=== PATIENT | female | born 1980 | race Caucasian/White ===

== ENCOUNTER 2017-04-07 10:54 | Inpatient (IN) ==
[2017-04-07 11:14] VITALS: BMI 41.4
[2017-04-07] MEDS ORDERED: CLINDAMYCIN 300 MG CAPSULE PO SCH (13:30)
[2017-04-07] MEDS ORDERED: FALL RISK - PHARMACY CONSULT XX PRN (14:06)
[2017-04-07] MEDS: ALBUTEROL 2.5mg/3ml (0.083%) NEB AEROSOL SCH ×2 (14:53→19:34)
[2017-04-07] MEDS: GABAPENTIN 600 MG TABLET PO SCH ×2 (14:55→21:54)
[2017-04-07] MEDS: CLINDAMYCIN 300 MG CAPSULE PO SCH ×2 (14:55→21:49)
[2017-04-07] MEDS: ONDANSETRON ODT 4 MG TABLET PO SCH ×2 (14:56→21:53)
--- NOTE | 2017-04-07 15:09 | Consult Note ---
<Aundrea Dickens - Last Filed: 04/07/17 14:39> Consult Information - Data of Consult Patient: new to practice Consult date: 04/07/17 Requesting Physician: Freedom Lo MD Primary Care Provider: Dr. Era Barrientos Family Provider: Dr. Era Barrientos - Consult Narrative Reason for consult: Medical Management History of present illness: Yesenia Jacob is a very pleasant 36-year-old Tanzanian-speaking patient with a known history of HIV/AIDS with toxoplasmosis. She was directly admitted [place] [facility] [place] [facility] today, 04/07/17, for continuation of intensive rehabilitation secondary to her progressive right sided weakness and generalized debility following her recent hospitalization. Her daughter, Amy , translates via the patient's cell phone, contributing to the history in addition to review of the medical records available from her recent admission. It is reported that on 04/02/17, while visiting family at [facility] in [place], she complained of increased right sided numbness and weakness to her family and was noted to have increased difficulty ambulating with her walker in light of the weakness. She also reports that at that time she was having severe left sided chest pain which she describes as pressure. Shortly complaining of her pain, she went unresponsive and was transferred to the ED. While in the ED, she initially had a GCS score of 3. State CT head showed no acute changes. During her evaluation in the ED, she began posturing and required intubation and was then transferred to [facility] under the care of Dr. Yoon. During her hospitalization at [facility] in the [facility] , it was reported that she had 2 questionable seizures on 04/02. The seizures were reported to be nonepileptic in description. Dr. Lizbeth Cowan, neurology was consulted. She was given a loading dose of Keppra with continuation of her home dose of Keppra. MRI of the head was obtained and showed no acute changes. She also under went an EEG on 04/03 which showed no potentially epileptogenic abnormalities or seizure activity during wake or sleep. She continued to exhibit right sided weakness as compared to the left sided and reported right sided numbness to her face and arm. Prior to her unresponsive episode on , she was seen in clinic by Dr. Barrientos on 03/29/17 due to complaints of right sided weakness and left sided headache. She was noted to have become less functional with ADLs and ambulation. At that time, her toxoplasmosis regimen was updated as well as her seizure treatment. Her Keppra dose was increased to 1500mg BID as she reportedly had a seizure on 03/25/17. Due to her progressive right sided numbness and weakness, she was accepted to IRU for continued efforts in improving her functional abilities and strength. Hospitalist service was consulted for medical management. On exam, she is seen in her room, sitting in her recliner. She is alert and orientated x 3 and is very pleasant on exam. Her daughter translates via phone. She denies any complaints at this time including no headache, chest pain , shortness of breath, abdominal pain, nausea, vomiting, dysuria, hematuria or diarrhea. She does express concern about her recent chest pain, but again denies any current chest pain, palpitation or irregular beats. She is noted to have eating all her lunch. Cardiac exam reveals regular rate and rhythm and lungs are clear to auscultation bilaterally. Abdomen is soft, nontender with active bowel sounds. 2+ pedal and radial pulses bilaterally. No obvious facial droop. Full extension of arms bilaterally and able to hold both arms up with out drift. 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 Strength equal to bilateral lower extremities with the exception of right foot dorsi and plantar flexion. [facility]LY [facility] Medical History Updates: AIDS. Toxoplasmosis - active therapy phase. Persistent seizures. Neuropathy. Hypothyroidism. GERD. History of anemia. Asthma. Allergic rhinitis. Surgical History: - 2003. Cholecystectomy - 2009. Hysterectomy secondary uterine tumor - 05/16/2015. Right knee and ankle arthroscopy - 2015. Left parietal mass resection - 10/09/2016 (Dr. Costa). Family History Updates: Mother - , age 24, HIV. Father - unknown. Daughter - alive, age 13, HIV. Daughter - alive, age 17, healthy. Son - alive , age 19, healthy. Sister - alive, age 33, hypothyroidism. - Social History Smoking status: Never smoker Substance use type: does not use Alcohol intake frequency: does not drink Housing: apartment Household members: children (daughter) service: No Current occupational status: disabled Does patient use chewing tobacco?: No Current residence: Apartment/Private Home Social history: PCP - Dr. Era Barrientos. Review of Systems All systems: reviewed and no additional remarkable complaints except as stated - Constitutional Constitutional: Present: headache(s), weakness (right sided). Absent: chills, fever(s) - EENMT Eyes: Absent: blurry vision, pain Ears: Absent: ear pain Nose: Present: allergies. Absent: nosebleeds Mouth/Throat: Absent: sore throat, changes in swallowing, dry mouth - Cardiovascular Cardiovascular: Absent: chest pain (prior chest pain during admission [facility] ), palpitations, dyspnea on exertion, edema Vascular: Absent: pallor of an extermity, pedal edema, unilateral swelling - Respiratory Respiratory: Absent: cough, dyspnea, hemoptysis, dyspnea on exertion, wheezing, pain on inspiration - Gastrointestinal Gastrointestinal: Present: constipation. Absent: abdominal pain, change in bowel habits, diarrhea, melena, nausea, vomiting - Genitourinary Genitourinary: Absent: dysuria, hematuria Menstruation: post hysterectomy - Musculoskeletal Musculoskeletal: Present: muscle weakness. Absent: arthralgias, deformity, joint swelling, neck pain - Integumentary/Breasts Integumentary: Absent: lesions, rash, jaundice - Neurological Neurological: Present: focal weakness (right sided), headache(s), numbness ( right sided), weakness. Absent: abnormal speech, dizziness, frequent falls, loss of vision - Psychiatric Psychiatric: Absent: anxiety, depression, panic attacks, suicidal ideation - Endocrine Endocrine: Absent: palpitations, polyuria - Hematologic/Lymphatic Hematologic/Lymphatic: Absent: easy bleeding, easy bruising - Allergic/Immunologic Allergic/Immunologic: Present: seasonal rhinorrhea. Absent: throat swelling Medications Home Medications Medication Instructions Recorded Confirmed Type Dapsone [Aczone] 100 mg PO DAILY #0 09/17/15 04/07/17 History Albuterol Neb (0.083%) [Proventil 3 ml AEROSOL TID 04/07/17 04/07/17 History Neb (0.083%)] Clindamycin [Cleocin] 2 cap PO Q6H 04/07/17 04/07/17 History Cyclobenzaprine [Flexeril] 1 tab PO TID PRN 04/07/17 04/07/17 History Dolutegravir Sodium [Tivicay] 50 mg PO DAILY 04/07/17 04/07/17 History Emtricitabine/Tenofov Alafenam 1 tab PO DAILY 04/07/17 04/07/17 History [Descovy 200-25 mg Tablet] Ergocalciferol (Vit. D2) [Vitamin 1 cap PO QTUTH 04/07/17 04/07/17 History D-2] Gabapentin [Neurontin] 1 tab PO TID 04/07/17 04/07/17 History Leucovorin Calcium 25 mg PO DAILY 04/07/17 04/07/17 History Levothyroxine Tab [Synthroid] 1 tab PO ACB 04/07/17 04/07/17 History Montelukast [Singulair] 1 tab PO HS 04/07/17 04/07/17 History Ondansetron [Zofran Odt] 8 mg PO Q8H 04/07/17 04/07/17 History Oxycodone *Ir* [Roxicodone *Ir*] 5 mg PO Q6HPRN PRN 04/07/17 04/07/17 History Pantoprazole Tab [Protonix Tab] 1 tab PO ACBID 04/07/17 04/07/17 History Pyrimethamine [Daraprim] 3 tab PO DAILY 04/07/17 04/07/17 History hydrOXYzine HCl [Hydroxyzine HCl] 25 mg PO Q6H PRN 04/07/17 04/07/17 History levETIRAcetam [Levetiracetam] 1,500 mg PO BID 04/07/17 04/07/17 History Allergies Allergy/AdvReac Type Severity Reaction Status Date / Time Fish Containing Products Allergy Unknown Verified 07/08/16 01:18 lactose Allergy Unknown Verified 07/08/16 01:18 sulfamethoxazole Allergy Unknown Verified 07/08/16 01:18 trimethoprim Allergy Unknown Verified 07/08/16 01:18 Exam Vital Signs: Temperature 98.5 F 04/07/17 11:03 Pulse Rate 68 04/07/17 11:03 Respiratory Rate 16 04/07/17 11:03 Blood Pressure 104/64 04/07/17 11:03 Pulse Oximetry 97 04/07/17 11:03 Oxygen Delivery Method Room Air Height: 5 ft 2 in Weight: 226 lb 6.636 oz Body Mass Index: 41.4 - Constitutional Present: no acute distress, well nourished, well developed, obese, cooperative - Routine HEENT Exam Head: Present: normocephalic, atraumatic Eye: Present: EOMI, PERRL. Absent: conjunctival icterus, scleral injection ENT: Present: mucous membranes moist, dentition normal - Routine Neck Exam Present: supple, full ROM, trachea midline. Absent: tenderness, meningismus - Routine Chest/Breast/Axilla Exam Chest wall: Absent: tenderness, pacemaker - Routine Respiratory Exam Present: CTA bilaterally. Absent: accessory muscle use, rales, respiratory distress, rhonchi, stridor, wheezes, crackles - Routine Cardiovascular Exam Present: RRR, S1, S2, no murmur - Routine Abdominal Exam Present: soft, normoactive bowel sounds, non distended, non tender. Absent: guarding, firm, rigid - Routine Extremities Exam Present: no edema, non tender, full ROM, pulses intact. Absent: cyanosis, calf tenderness, pallor - Routine Back/Spine/Pelvis Exam Back/Spine: Absent: paraspinal tenderness, vertebral tenderness, erythema, warmth - Routine Skin Exam Present: intact, dry, normal turgor. Absent: erythema, petechiae, lesions, jaundice, rash - Routine Neurological Exam Present: alert, oriented X3, CN II-XII intact, moving all extremities, hearing grossly intact, normal speech. Absent: pronator drift, facial asymmetry decreased satellite dish installer on right as compared to left; decreased strength with dorsi and plantar flexion on right as compared to left. - Routine Psychiatric Exam Present: normal affect, cooperative Assessment and Plan (1) Weakness of right side of body Current visit: Yes Status: Acute (2) AIDS (acquired immunodeficiency syndrome), CD4 >200 and <500 Current visit: Yes Status: Chronic (3) Toxoplasmosis Current visit: Yes Status: Chronic (4) Seizures Current visit: Yes Status: Chronic (5) Neuropathy Current visit: Yes Status: Chronic (6) Hypothyroidism Current visit: Yes Status: Chronic (7) GERD (gastroesophageal reflux disease) Current visit: Yes Status: Chronic (8) Debility Current visit: Yes Status: Acute DVT Prophylaxis: SCD's GI Prophylaxis: Protonix Resuscitation Status: Full Code Assessment and Plan: -Debility secondary to acute illness and right sided weakness. .Agree with the admission to IRU under the care of Dr. Eason. Consult hospitalist service for medical management. .Provide a safe and supportive environment and encourage participation in therapies. .Recent MRI was unremarkable as was CT head. .Will obtain admission work up including CBC and CMP to monitor blood counts , electrolytes and renal function. .Patient reports episodes of hypoglycemia. Will obtain BMGs and monitor closely. .SCDs for DVT prophylaxis. -AIDS with toxoplasmosis, MAC. .Patient follows with Dr. Era Barrientos in [place]. .Continue home medications Tivicay and Descovy. Patient's family to bring her medications to hospital so she can take her own meds. .Viral load 70 and RPR negative on 03/29/17. .Patient off dapsone for PCP as CD4>200 consistently x 3 months (CD4 on 12/21 = 239, CD4 on 03/29 = 293) .Continue active therapy for toxoplasmosis 6 more weeks including clindamycin 600mg Q6H, Leucovorin 25mg PO daily and Daraprim 75mg po daily. .Records from [facility] indicate dosing will change to maintenance therapy for toxoplasmosis on 05/10/17 - clindamycin 800mg Q8H, daraprim 50mg daily and leucovorin daily, presumed to be at 25mg. -History of seizures. .Monitor closely for seizure activity. Seizure precautions. .Ativan 0.5mg PRN seizures. .Prior EEG on 04/03/17 at [facility] showed no abnormalities or seizure activity. .Encourage follow up with Dr. Cameron as outpatient . .Continue Keppra 1500mg BID. -Neuropathy. .Continue home gabapentin. -Hypothyroidism. .Will check TSH now and continue home synthyroid. -GERD. .Continue home protonix. Appreciate the ability to assist in the care of Yesenia. Upon discharge, her care will be returned to her PCP, Dr. Barrientos. Hospital Course Summary Disclaimer: The visit summary below is not to be considered part of the above Progress Note. Hospital Course: 04/07/17 15:45 -Debility secondary to acute illness and right sided weakness. .Agree with the admission to IRU under the care of Dr. Eason. Consult hospitalist service for medical management. .Provide a safe and supportive environment and encourage participation in therapies. .Recent MRI was unremarkable as was CT head. .Will obtain admission work up including CBC and CMP to monitor blood counts , electrolytes and renal function. .Patient reports episodes of hypoglycemia. Will obtain BMGs and monitor closely. .SCDs for DVT prophylaxis. -AIDS with toxoplasmosis, MAC. .Patient follows with Dr. Era Barrientos in [place]. .Continue home medications Tivicay and Descovy. Patient's family to bring her medications to hospital so she can take her own meds. .Viral load 70 and RPR negative on 03/29/17. .Patient off dapsone for PCP as CD4>200 consistently x 3 months (CD4 on 12/21 = 239, CD4 on 03/29 = 293) .Continue active therapy for toxoplasmosis 6 more weeks including clindamycin 600mg Q6H, Leucovorin 25mg PO daily and Daraprim 75mg po daily. .Records from [facility] indicate dosing will change to maintenance therapy for toxoplasmosis on 05/10/17 - clindamycin 800mg Q8H, daraprim 50mg daily and leucovorin daily, presumed to be at 25mg. -History of seizures. .Monitor closely for seizure activity. Seizure precautions. .Ativan 0.5mg PRN seizures. .Prior EEG on 04/03/17 at [facility] showed no abnormalities or seizure activity. .Encourage follow up with Dr. Cameron as outpatient . .Continue Keppra 1500mg BID. -Neuropathy. .Continue home gabapentin. -Hypothyroidism. .Will check TSH now and continue home synthyroid. -GERD. .Continue home protonix. Appreciate the ability to assist in the care of Yesenia. Upon discharge, her care will be returned to her PCP, Dr. Barrientos. Sepsis Assessment - Evaluation Sepsis screening result: No Definite Risk <Joel Almaraz - Last Filed: 04/07/17 16:21> Consult Information - Data of Consult Requesting Physician: Freedom Lo MD [facility] Patient Stated Medical History Seizures Yes Constipation No Gastroesophageal Reflux Yes Disease Hx Incontinence No Human Immunodeficiency Virus ( Yes HIV) Other Yes: Hx: AIDS w/ MAC, toxoplasmosis s/p treatment Exam Vital Signs: Temperature 98.5 F 04/07/17 11:03 Pulse Rate 68 04/07/17 11:03 Respiratory Rate 14 04/07/17 14:53 Blood Pressure 104/64 04/07/17 11:03 Pulse Oximetry 97 04/07/17 14:53 Oxygen Delivery Method Room Air Height: 1.57 m Weight: 102.7 kg Assessment and Plan (1) Weakness of right side of body Current visit: Yes Status: Acute (2) Debility Current visit: Yes Status: Acute (3) AIDS (acquired immunodeficiency syndrome), CD4 >200 and <500 Current visit: Yes Status: Chronic (4) Toxoplasmosis Current visit: Yes Status: Chronic (5) Seizures Current visit: Yes Status: Chronic (6) Neuropathy Current visit: Yes Status: Chronic (7) Hypothyroidism Current visit: Yes Status: Chronic (8) GERD (gastroesophageal reflux disease) Current visit: Yes Status: Chronic Assessment and Plan: Have independently interviewed and examined pt. Chart reviewed. Case discussed with my PA. Above care plan developed with my supervision; agree with above. Pt' s daughter present during the interview and examination and helped with interpretation. Recent hospitalization with collapse and seizure activity. Seizures controlled, but pt with persistent right sided weakness and parasthesia limiting her functional ability. Admitted to IRU to maximize functional status. Breathing stable-no pain with breathing, occasional cough but not SOA. Notes nausea at times-no vomiting. Bowels stable. Does have mild pain to right side of head. Lungs: clear bilaterally CV: regular AB: soft nt/nd +BS EXT: +1-2 bilaterally LE edema MSE: awake alert appropriate, thoughts linear. Converses well Plan: Agree with admission to IRU to maximize functional status. Continue with chronic medications. Monitor for seizure activities. Medically stable for IRU floor activity. Hospital Course Summary Disclaimer: The visit summary below is not to be considered part of the above Progress Note.
[2017-04-07] MEDS: PANTOPRAZOLE 40 MG TABLET PO SCH (17:30)
[2017-04-07] MEDS ORDERED: MORPHINE SULFATE 4 MG SYRINGE IVP PRN (21:07)
[2017-04-07] MEDS: Oxycodone *IR* 5 MG TABLET PO PRN (21:52)
[2017-04-07] MEDS: LEVETIRACETAM 500 MG TABLET PO SCH (21:53)
[2017-04-07] MEDS: MONTELUKAST 10 MG TABLET PO SCH (21:54)
[2017-04-08] MEDS: CLINDAMYCIN 300 MG CAPSULE PO SCH ×5 (02:19→21:15)
[2017-04-08] MEDS: Oxycodone *IR* 5 MG TABLET PO PRN ×2 (02:19→09:06)
[2017-04-08] MEDS: PANTOPRAZOLE 40 MG TABLET PO SCH ×2 (06:19→18:01)
[2017-04-08] MEDS: LEVOTHYROXINE 75 MCG TABLET PO SCH (06:19)
[2017-04-08] MEDS: ONDANSETRON ODT 4 MG TABLET PO SCH ×3 (06:19→21:17)
[2017-04-08] MEDS: ALBUTEROL 2.5mg/3ml (0.083%) NEB AEROSOL SCH ×3 (08:14→19:47)
[2017-04-08] MEDS: GABAPENTIN 600 MG TABLET PO SCH ×3 (08:42→21:16)
[2017-04-08] MEDS: ENOXAPARIN 40 MG/0.4 ML INJECTION SQ SCH (08:44)
[2017-04-08] MEDS: DAPSONE 100 MG TABLET PO SCH (08:45)
[2017-04-08] MEDS: DOLUTEGRAVIR SODIUM 50 MG PO SCH (08:48)
[2017-04-08] MEDS: [UNRECOGNIZED DRUG - OTHER] PO SCH (08:52)
[2017-04-08] MEDS: EMTRICITABINE PO SCH (08:52)
[2017-04-08] MEDS: TENOFOVIR ALAFENAMIDE PO SCH (08:52)
[2017-04-08] MEDS: LEVETIRACETAM 500 MG TABLET PO SCH ×2 (08:59→21:18)
[2017-04-08] MEDS: LEUCOVORIN 25 MG PO SCH (09:35)
[2017-04-08] MEDS: [UNRECOGNIZED DRUG - OTHER] PO SCH (09:36)
[2017-04-08] MEDS: CYCLOBENZAPRINE 10 MG TABLET PO PRN (14:26)
--- NOTE | 2017-04-08 15:32 | IRU History & Physical Report ---
HPI IRU Date: 458 Chief complaint: Right sided weakness HPI: Ms. Arpita Jacob is admitted with right sided weakness after a spell which occurred in [place] at [facility]. On March, she was visiting her daughter and grandchild at the hospital she reportedly felt reduced sensation in her right arm and leg. She became very thirsty. She drank some water. She had a "pulsing" feeling in her left side of her head. She also reports a right ant chest pain sensation. She then experienced loss of consciousness. She was taken to [facility], also in [place]. After a neg CT scan, an MRI was done, failing to identify any new findings compared to prior imaging. 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 Era Barrientos. Last CD4 count was over 200. Viral load around 70. She has hx of a mass resected from her left parietal area in June 2016. Presumably this was toxo although exact pathology is not available and reference is made in the transfer records that it may have been a non-specific finding. She does have history of recurrent seizures but states that she is regular on her medication usage. It is not clear if she had another seizure this time in [place] although she states that her usual "aura" of itchy eyes, etc. did NOT occur this time. She has been admitted to the hospitals in [place] on numerous occasions for recurrent seizures. Since this more recent episode, she has been much less functional regarding ADL's and ambulation. She did experience "posturing" in the ED in [place]. Intubation was performed but she was rapidly extubated the next day. She is admitted to the inpatient rehab unit for strengthening after recurrent seizures and a new "spell" recently occurring. She has left brain dysfunction and right sided weakness. There was no evidence of bleed in the brain on MRI. At the time of admission to IRU it is noted that she was independent with eating prior to her admission in [place] but now requires supervision. She now requires mod assist for lower dressing and toileting. Requires moderate assist for walking. Prior distance walking was 500 ft but now is 42 ft. It is anticipated that she will be mod independent with self-care, independent with sphincter control, mod Indep with transfers, locomotion and in communication skills. She will require 24 hour nursing care due to her seizures and risk for infection , nutrition services, OT, PT pastoral care and psychiatric social worker along with physician management of her complex medical problems. Review of Systems - Constitutional Constitutional: Present: headache(s), weakness (right sided). Absent: chills, fever(s) - EENMT Eyes: Absent: blurry vision, pain Ears: Absent: ear pain Nose: Present: allergies. Absent: nosebleeds Mouth/Throat: Absent: sore throat, changes in swallowing, dry mouth - Cardiovascular Cardiovascular: Absent: chest pain (prior chest pain during admission SF ), palpitations, dyspnea on exertion, edema Vascular: Absent: pallor of an extermity, pedal edema, unilateral swelling - Respiratory Respiratory: Absent: cough, dyspnea, hemoptysis, dyspnea on exertion, wheezing, pain on inspiration - Gastrointestinal Gastrointestinal: Present: constipation. Absent: abdominal pain, change in bowel habits, diarrhea, melena, nausea, vomiting - Genitourinary Genitourinary: Absent: dysuria, hematuria Menstruation: post hysterectomy - Musculoskeletal Musculoskeletal: Present: muscle weakness. Absent: arthralgias, deformity, joint swelling, neck pain - Integumentary/Breasts Integumentary: Absent: lesions, rash, jaundice - Neurological Neurological: Present: focal weakness (right sided), headache(s), numbness ( right sided), weakness. Absent: abnormal speech, dizziness, frequent falls, loss of vision - Psychiatric Psychiatric: Absent: anxiety, depression, panic attacks, suicidal ideation - Endocrine Endocrine: Absent: palpitations, polyuria - Hematologic/Lymphatic Hematologic/Lymphatic: Absent: easy bleeding, easy bruising - Allergic/Immunologic Allergic/Immunologic: Present: seasonal rhinorrhea. Absent: throat swelling PFS Patient Stated Medical History Seizures Yes Constipation No Gastroesophageal Reflux Yes Disease Hx Incontinence No Human Immunodeficiency Virus ( Yes HIV) Other Yes: Hx: AIDS w/ MAC, toxoplasmosis s/p treatment Medical History Updates: AIDS. Toxoplasmosis - active therapy phase. Persistent seizures. Neuropathy. Hypothyroidism. GERD. History of anemia. Asthma. Allergic rhinitis. Surgical History: - 2003. Cholecystectomy - 2009. Hysterectomy secondary uterine tumor - 05/16/2015. Right knee and ankle arthroscopy - 2015. Left parietal mass resection - 10/09/2016 (Dr. Costa). - Social History Current residence: Apartment/Private Home Medications Home Medications Medication Instructions Recorded Confirmed Type Dapsone [Aczone] 100 mg PO DAILY #0 09/17/15 04/07/17 History Albuterol Neb (0.083%) [Proventil 3 ml AEROSOL TID 04/07/17 04/07/17 History Neb (0.083%)] Clindamycin [Cleocin] 2 cap PO Q6H 04/07/17 04/07/17 History Cyclobenzaprine [Flexeril] 1 tab PO TID PRN 04/07/17 04/07/17 History Dolutegravir Sodium [Tivicay] 50 mg PO DAILY 04/07/17 04/07/17 History Emtricitabine/Tenofov Alafenam 1 tab PO DAILY 04/07/17 04/07/17 History [Descovy 200-25 mg Tablet] Ergocalciferol (Vit. D2) [Vitamin 1 cap PO QTUTH 04/07/17 04/07/17 History D-2] Gabapentin [Neurontin] 1 tab PO TID 04/07/17 04/07/17 History Leucovorin Calcium 25 mg PO DAILY 04/07/17 04/07/17 History Levothyroxine Tab [Synthroid] 1 tab PO ACB 04/07/17 04/07/17 History Montelukast [Singulair] 1 tab PO HS 04/07/17 04/07/17 History Ondansetron [Zofran Odt] 8 mg PO Q8H 04/07/17 04/07/17 History Oxycodone *Ir* [Roxicodone *Ir*] 5 mg PO Q6HPRN PRN 04/07/17 04/07/17 History Pantoprazole Tab [Protonix Tab] 1 tab PO ACBID 04/07/17 04/07/17 History Pyrimethamine [Daraprim] 3 tab PO DAILY 04/07/17 04/07/17 History hydrOXYzine HCl [Hydroxyzine HCl] 25 mg PO Q6H PRN 04/07/17 04/07/17 History levETIRAcetam [Levetiracetam] 1,500 mg PO BID 04/07/17 04/07/17 History Allergies Allergy/AdvReac Type Severity Reaction Status Date / Time Fish Containing Products Allergy Unknown Verified 04/07/17 17:04 lactose Allergy Unknown Verified 04/07/17 17:04 sulfamethoxazole Allergy Unknown Verified 04/07/17 17:04 trimethoprim Allergy Unknown Verified 04/07/17 17:04 Exam Vital Signs: Temperature 98.5 F 04/08/17 08:34 Pulse Rate 77 04/08/17 08:34 Respiratory Rate 16 04/08/17 08:00 Blood Pressure 122/75 04/08/17 08:34 Pulse Oximetry 96 04/08/17 08:34 Oxygen Delivery Method Room Air Height: 1.57 m Weight: 102.7 kg Body Mass Index: 41.4 - Constitutional Present: no acute distress, well developed, obese - Routine HEENT Exam Head: Present: normocephalic Eye: Present: EOMI ENT: Present: mucous membranes moist - Routine Neck Exam Present: supple, full ROM - Routine Respiratory Exam Present: CTA bilaterally - Routine Cardiovascular Exam Present: RRR, S1, S2, no murmur - Routine Abdominal Exam Present: soft, normoactive bowel sounds, non distended, non tender - Routine Extremities Exam Present: non tender, full ROM - Routine Skin Exam Present: intact. Absent: cyanosis, erythema, rash - Routine Neurological Exam Present: alert, oriented X3, sensory deficit (reduced sensation to light touch right upper ext, right leg, right face), motor deficit (reduced flex/extension strength right upper and lower extremities.), abnormal gait, facial asymmetry ( questionable LEFT sided face droop: subtle and opposite to right arm/leg weakness). Absent: pronator drift - Routine Psychiatric Exam Present: normal affect (Very detailed), anxious Sepsis Assessment - Evaluation Sepsis screening result: No Definite Risk IRU A/P (1) Weakness of right side of body Current visit: Yes Status: Acute Pt will require skilled physical therapy and occupational therapy for safe return to her home and avoid additional admission as well as to prevent falls. (2) AIDS (acquired immunodeficiency syndrome), CD4 >200 and <500 Current visit: Yes Status: Chronic Per medical team. Continue current meds. Avoidance of contact with other ill patients/family members. (3) Seizures Current visit: Yes Status: Chronic Per medical team. Continue Keppra. Observe for recurrent seizure activity. (4) Toxoplasmosis Current visit: Yes Status: Chronic Continue active treatment. Per medical team. DVT Prophylaxis: SCD's, Lovenox Resuscitation Status: Full Code - Course Hospital Course: Jackson Eason MD: - Interventions to Obtain Goals PT Treatment Plan: Balance/Proprioception, Functional Activities, Gait Training , Patient/Family Education, Therapeutic Exercise OT Treatment Plan: ADL (Basic Care), Balance Training, Pt./Family Education, Sensory Integration, UE Functional Training
[2017-04-08] MEDS: MONTELUKAST 10 MG TABLET PO SCH (21:19)
[2017-04-09] MEDS: CLINDAMYCIN 300 MG CAPSULE PO SCH ×4 (02:45→21:02)
[2017-04-09] MEDS: PANTOPRAZOLE 40 MG TABLET PO SCH ×2 (06:16→17:36)
[2017-04-09] MEDS: LEVOTHYROXINE 75 MCG TABLET PO SCH (06:16)
[2017-04-09] MEDS: ONDANSETRON ODT 4 MG TABLET PO SCH ×3 (06:16→21:03)
[2017-04-09] MEDS: ALBUTEROL 2.5mg/3ml (0.083%) NEB AEROSOL SCH ×3 (07:20→20:36)
[2017-04-09] MEDS: ENOXAPARIN 40 MG/0.4 ML INJECTION SQ SCH (08:40)
[2017-04-09] MEDS: DAPSONE 100 MG TABLET PO SCH (08:41)
[2017-04-09] MEDS: DOLUTEGRAVIR SODIUM 50 MG PO SCH (08:42)
[2017-04-09] MEDS: EMTRICITABINE PO SCH (08:42)
[2017-04-09] MEDS: TENOFOVIR ALAFENAMIDE PO SCH (08:42)
[2017-04-09] MEDS: [UNRECOGNIZED DRUG - OTHER] PO SCH (08:42)
[2017-04-09] MEDS: LEUCOVORIN 25 MG PO SCH (08:43)
[2017-04-09] MEDS: GABAPENTIN 600 MG TABLET PO SCH ×3 (08:43→21:03)
[2017-04-09] MEDS: [UNRECOGNIZED DRUG - OTHER] PO SCH (08:43)
[2017-04-09] MEDS: LEVETIRACETAM 500 MG TABLET PO SCH ×2 (08:44→21:02)
[2017-04-09] MEDS: ERGOCALCIFEROL 50,000 UNIT CAPSULE PO SCH (08:44)
--- NOTE | 2017-04-09 10:15 | Progress Note ---
<Aundrea Dickens Xochilt - Last Filed: 04/09/17 10:11> Subjective: 04/09/17 Today is Yesenia's birthday and her daughter is present on exam and helps translate. She is seen in follow up for her right sided weakness and debility. She denies any complaints today including no chest pain, shortness of breath, abdominal pain, nausea, vomiting or dysuria. She does express concern about being able to get in and out of the tub at home. Therapy is present and discusses with her the use of a bath chair that is stationed both in and out of the tub so that all she needs to do is scoot. She is very pleased with this idea. Labs from admission were similar to labs from [facility] [place]. Mild leukopenia noted with WBC at 4.1 and hemoglobin low at 9.7. Nursing commented that the patient reports that she usually takes iron supplements but has not been getting one since admission. Will review MAR and home medications. Blood pressure has been on the lower end at 96/55. She does admit to some orthostasis with standing. Overall, she appears to be doing well. Appetite is good and bowels are moving. Heating pad noted behind patient's shoulders and she admits to some shoulder and neck pain yesterday but states that she was given a muscle relaxer which helped significantly as does the heating pad. She did also report that the muscle relaxer made her very sleepy. Objective Vital signs: Temperature 96.2 F L 04/09/17 07:00 Pulse Rate 74 04/09/17 07:00 Respiratory Rate 12 04/09/17 07:21 Blood Pressure 108/65 04/09/17 07:00 Pulse Oximetry 94 04/09/17 07:21 Oxygen Delivery Method Room Air Body Mass Index: 41.4 - Constitutional Present: no acute distress, well nourished, well developed, obese, cooperative - Routine HEENT Exam Head: Present: normocephalic, atraumatic Eye: Absent: conjunctival icterus, scleral injection ENT: Present: mucous membranes moist - Routine Respiratory Exam Present: CTA bilaterally. Absent: accessory muscle use, dyspnea, rales, respiratory distress, rhonchi, stridor, wheezes, crackles - Routine Cardiovascular Exam Present: RRR, S1, S2 - Routine Abdominal Exam Present: soft, normoactive bowel sounds, non distended, non tender - Routine Extremities Exam Present: edema (trace), non tender, pulses intact - Routine Back/Spine/Pelvis Exam Back/Spine: Present: full ROM, paraspinal tenderness (cervical). Absent: vertebral tenderness - Routine Musculoskeletal Exam Musculoskeletal: Present: no joint swelling - Routine Skin Exam Present: intact, dry, warm. Absent: erythema, jaundice - Routine Neurological Exam Present: alert, oriented X3, moving all extremities, normal tone, normal speech. 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 - Routine Psychiatric Exam Present: normal affect, cooperative Results - Labs CBC & Chem 7: 04/07/17 16:36 04/07/17 16:36 Assessment and Plan (1) AIDS (acquired immunodeficiency syndrome), CD4 >200 and <500 Current visit: Yes Status: Chronic (2) Toxoplasmosis Current visit: Yes Status: Chronic (3) Seizures Current visit: Yes Status: Chronic (4) Neuropathy Current visit: Yes Status: Chronic (5) Hypothyroidism Current visit: Yes Status: Chronic (6) GERD (gastroesophageal reflux disease) Current visit: Yes Status: Chronic (7) Weakness of right side of body Current visit: Yes Status: Acute (8) Debility Current visit: Yes Status: Acute Assessment and Plan: Overall, Yesenia appears to be doing well. Today is her birthday and she is in good spirits. Was given muscle relaxer yesterday for bilateral shoulder and neck pain with heating pad which she reports relieved her discomfort. Continue therapies and pain control per Dr. Eason. Encourage participation in therapies and provide safe environment. Patient expresses concern about bathing at home and anxieties were relieved through discussion of home equipment options. Admission labs were relatively unremarkable and unchanged from prior labs at [facility] [place]. Leukopenia noted with WBC 4.1 (chronic) and anemia with hemoglobin at 9.7. Nursing noted that patient commented on not receiving her iron supplement since admission. MAR reviewed. Sepsis Assessment - Evaluation Sepsis screening result: No Definite Risk Hospital Course Summary Disclaimer: The visit summary below is not to be considered part of the above Progress Note. Hospital Course: 04/07/17 15:45 -Debility secondary to acute illness and right sided weakness. .Agree with the admission to IRU under the care of Dr. Eason. Consult hospitalist service for medical management. .Provide a safe and supportive environment and encourage participation in therapies. .Recent MRI was unremarkable as was CT head. .Will obtain admission work up including CBC and CMP to monitor blood counts , electrolytes and renal function. .Patient reports episodes of hypoglycemia. Will obtain BMGs and monitor closely. .SCDs for DVT prophylaxis. -AIDS with toxoplasmosis, MAC. .Patient follows with Dr. Era Barrientos in [place]. .Continue home medications Tivicay and Descovy. Patient's family to bring her medications to hospital so she can take her own meds. .Viral load 70 and RPR negative on 03/29/17. .Patient off dapsone for PCP as CD4>200 consistently x 3 months (CD4 on 12/21 = 239, CD4 on 03/29 = 293) .Continue active therapy for toxoplasmosis 6 more weeks including clindamycin 600mg Q6H, Leucovorin 25mg PO daily and Daraprim 75mg po daily. .Records from [facility] indicate dosing will change to maintenance therapy for toxoplasmosis on 05/10/17 - clindamycin 800mg Q8H, daraprim 50mg daily and leucovorin daily, presumed to be at 25mg. -History of seizures. .Monitor closely for seizure activity. Seizure precautions. .Ativan 0.5mg PRN seizures. .Prior EEG on 04/03/17 at [facility] [place] showed no abnormalities or seizure activity. .Encourage follow up with Dr. Cameron as outpatient . .Continue Keppra 1500mg BID. -Neuropathy. .Continue home gabapentin. -Hypothyroidism. .Will check TSH now and continue home synthyroid. -GERD. .Continue home protonix. Appreciate the ability to assist in the care of Yesenia. Upon discharge, her care will be returned to her PCP, Dr. Barrientos. <Tomasa Urbina - Last Filed: 04/09/17 17:48> Objective Vital signs: Temperature 98 F 04/09/17 15:00 Pulse Rate 66 04/09/17 16:20 Respiratory Rate 16 04/09/17 15:04 Blood Pressure 121/69 04/09/17 16:20 Pulse Oximetry 96 04/09/17 15:00 Oxygen Delivery Method Room Air Results - Labs CBC & Chem 7: 04/07/17 16:36 04/07/17 16:36 Assessment and Plan (1) AIDS (acquired immunodeficiency syndrome), CD4 >200 and <500 Current visit: Yes Status: Chronic (2) Toxoplasmosis Current visit: Yes Status: Chronic (3) Seizures Current visit: Yes Status: Chronic (4) Neuropathy Current visit: Yes Status: Chronic (5) Hypothyroidism Current visit: Yes Status: Chronic (6) GERD (gastroesophageal reflux disease) Current visit: Yes Status: Chronic (7) Weakness of right side of body Current visit: Yes Status: Acute (8) Debility Current visit: Yes Status: Acute (9) Iron deficiency anemia Current visit: Yes Status: Chronic 04/09/17 17:47 Iron 34, TIBC 507, iron saturation 7%, ferritin 9, vitamin B-12 534 on 03/22/17 Assessment and Plan: I have independently evaluated and examined this patient. I reviewed the chart, the patient's history, and the PA's documented findings as above. We discussed and formulated the assessment and plan as above with additions as below: Yesenia was seen with several family members in the dining room. She reported no specific concerns at this time. She describes some residual numbness in the right face, arm, and leg since onset of seizures prompting hospitalization at [place]. No further seizure activity. NAD, alert, cooperative; speaking-daughter translates. 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 Iron studies obtained 03/22/17-serum iron 34, TIBC 507, iron saturation 7%, ferritin 9 , B-12 534. No need to repeat anemia evaluation here-studies canceled. Iron supplement ordered. Continue therapies. Hospital Course Summary Disclaimer: The visit summary below is not to be considered part of the above Progress Note.
[2017-04-09] MEDS: Oxycodone *IR* 5 MG TABLET PO PRN (11:13)
[2017-04-09] MEDS: MULTI-VITAMIN + IRON TABLET PO SCH (14:14)
[2017-04-09] MEDS: MONTELUKAST 10 MG TABLET PO SCH (21:03)
[2017-04-09] MEDS: CYCLOBENZAPRINE 10 MG TABLET PO PRN (21:04)
[2017-04-10] MEDS: CLINDAMYCIN 300 MG CAPSULE PO SCH ×4 (02:41→22:17)
[2017-04-10] MEDS: ONDANSETRON ODT 4 MG TABLET PO SCH ×3 (06:00→22:22)
[2017-04-10] MEDS: LEVOTHYROXINE 75 MCG TABLET PO SCH (06:00)
[2017-04-10] MEDS: PANTOPRAZOLE 40 MG TABLET PO SCH ×2 (06:00→17:50)
[2017-04-10] MEDS: ALBUTEROL 2.5mg/3ml (0.083%) NEB AEROSOL SCH ×3 (06:40→18:54)
[2017-04-10] MEDS: DAPSONE 100 MG TABLET PO SCH (08:39)
[2017-04-10] MEDS: GABAPENTIN 600 MG TABLET PO SCH ×3 (08:40→22:17)
[2017-04-10] MEDS: ENOXAPARIN 40 MG/0.4 ML INJECTION SQ SCH (08:40)
[2017-04-10] MEDS: MULTI-VITAMIN + IRON TABLET PO SCH (08:40)
[2017-04-10] MEDS: FERROUS GLUCONATE 324 MG TABLET PO SCH (08:42)
[2017-04-10] MEDS: [UNRECOGNIZED DRUG - OTHER] PO SCH (08:43)
[2017-04-10] MEDS: EMTRICITABINE PO SCH (08:43)
[2017-04-10] MEDS: TENOFOVIR ALAFENAMIDE PO SCH (08:43)
[2017-04-10] MEDS: DOLUTEGRAVIR SODIUM 50 MG PO SCH (08:43)
[2017-04-10] MEDS: LEVETIRACETAM 500 MG TABLET PO SCH ×2 (08:44→22:18)
[2017-04-10] MEDS: LEUCOVORIN 25 MG PO SCH (08:44)
[2017-04-10] MEDS: [UNRECOGNIZED DRUG - OTHER] PO SCH (08:45)
--- NOTE | 2017-04-10 09:29 | IRU Progress Note ---
- Subjective/Serverity of Illness Yesenia was evaluated in her room today with her daughter and the RN present. She reports a lot more weakness, both generally as well as in the right side. She has no energy she states. She did eat breakfast fairly well. There is a mild cough. She has had no fever. Her BP is a bit low - in the 90's and sometimes low 100's. She did receive a Flexeril last night. It did help her neck pain but I wonder if this accounts for her significant weakness. Otherwise she has no other new complaints. Exam Vital Signs: Temperature 98.2 F 04/09/17 19:51 Pulse Rate 78 04/09/17 19:51 Respiratory Rate 18 04/10/17 06:58 Blood Pressure 123/67 04/09/17 19:51 Pulse Oximetry 98 04/10/17 06:58 Oxygen Delivery Method Room Air Height: 1.57 m Weight: 102.7 kg Body Mass Index: 41.4 - Constitutional Present: no acute distress, cooperative, other (appears "weak" and asthenic today. ) - Routine HEENT Exam Head: Present: normocephalic Eye: Present: EOMI - Routine Neck Exam Present: supple, full ROM - Routine Cardiovascular Exam Present: RRR, S1, S2, no murmur - Routine Abdominal Exam Present: soft, non distended, non tender - Routine Back/Spine/Pelvis Exam Back/Spine: Absent: muscle spasm - Routine Skin Exam Present: intact. Absent: cyanosis, erythema - Routine Neurological Exam Present: motor deficit (Right arm weak on flexion and extension, right leg weak on hip flexion, knee extension and flexion compared to left side), abnormal gait , moving all extremities. Absent: facial asymmetry - Routine Psychiatric Exam Present: cooperative Sepsis Assessment - Evaluation Sepsis screening result: No Definite Risk IRU A/P (1) Weakness of right side of body Current visit: Yes Status: Acute Her weakness appears to be a bit worse today. However, she is "weak" all over and I imagine this is due to the flexeril. We will discontinue that. This may impact her therapies today but we will continue to work with her. (2) AIDS (acquired immunodeficiency syndrome), CD4 >200 and <500 Current visit: Yes Status: Chronic Per medical team. No current evidence of active infection. (3) Seizures Current visit: Yes Status: Chronic Per medical. (4) Toxoplasmosis Current visit: Yes Status: Chronic DVT Prophylaxis: SCD's, Lovenox Resuscitation Status: Full Code - Course Hospital Course: Jackson Eason MD: - Interventions to Obtain Goals PT Treatment Plan: Balance/Proprioception, Functional Activities, Gait Training , Patient/Family Education, Therapeutic Exercise OT Treatment Plan: ADL (Basic Care), Balance Training, Pt./Family Education, Sensory Integration, UE Functional Training
--- NOTE | 2017-04-10 09:38 | IRU 24Hr Post Admit Eval ---
24 Hr Post Admission Physical - Relevant Changes Relevant Changes: No (Patient was seen and assessed at 0930 hours on 04/08/17 but not documented until later.) Reviewed: I have reviewed the patient's information and concur with the finding and results of the pre-admission screen. Certification: I certify the patient for rehabilitation. - Patient Condition (1) AIDS (acquired immunodeficiency syndrome), CD4 >200 and <500 Status: Chronic Code(s): B20 - Human immunodeficiency virus [HIV] disease Additional Information: Patient appears stable. Management per medical team. (2) Toxoplasmosis Status: Chronic Code(s): B58.9 - Toxoplasmosis, unspecified Additional Information: On treatment. Stable. Per medical team. (3) Seizures Status: Chronic Code(s): R56.9 - Unspecified convulsions (4) Neuropathy Status: Chronic Code(s): G62.9 - Polyneuropathy, unspecified (5) Hypothyroidism Status: Chronic Code(s): E03.9 - Hypothyroidism, unspecified (6) GERD (gastroesophageal reflux disease) Status: Chronic Code(s): K21.9 - Gastro-esophageal reflux disease without esophagitis (7) Weakness of right side of body Status: Acute Code(s): R53.1 - Weakness Additional Information: Yesenia continues to demonstrate significant right sided weakness. This will impact her rehabilitation. (8) Debility Status: Acute Code(s): R53.81 - Other malaise Additional Information: Yesenia has significant generalized weakness which will potentially hinder her rehabilitation. (9) Iron deficiency anemia Status: Chronic Code(s): D50.9 - Iron deficiency anemia, unspecified - Current Functional Status Failed Alternative Therapy: Arrived from Acute Care Patient Requirements: The patient requires oversight by rehabilitation physician to manage their rehabilitation treatment plan and multidisciplinary approach to care that can only be provided in an IRF and requires a multidisciplinary approach to care, provided by professional PTs, OTs, STs, dieticians, RTs, rehabilitation nurses and is not available in lesser levels of care. Limitiations Req: Mobility Impairment, ADL Impairment Physical Therapy Minutes: 90 Occupational Therapy Minutes: 90 Therapy: The patient is to receive therapy at least 5 days a week. - Plan to Avoid Complications Plan to Avoid Complications: The patient cannot receive this care in a lesser intensive setting such as [facility] or Outpatient Therapy due to the patient requiring the following .
[2017-04-10] MEDS: Oxycodone *IR* 5 MG TABLET PO PRN (11:13)
--- NOTE | 2017-04-10 12:13 | Progress Note ---
<Tonia Duggan - Last Filed: 04/10/17 15:33> Subjective: I was called by the nursing staff to examine Yesenia because of complaints of chest pain with breathing. When I arrived in her room, her daughter was present , and translated for us. Yesenia spoke broken Lithuanian. She stated that she has had chest pain and heaviness since hospitalization in [place]. It tends to get worse with movement and with breathing. She also complains of left scapular pain that is constant but also worsens with deep breathing. She was point tender over the medial scapula border, and up into her trapezius. She notes a headache at the base of her left skull. She complains of some right eye pain/ headache. She also had an episode earlier today when she got up and became nauseated, dizzy, lightheaded and sweaty. Vital signs were stable at that time. She states that she has nausea fairly frequently, but does not have any emesis. She still feels very weak. She notes heaviness and tiredness in her arms and legs, especially to her right leg. At the moment, she was feeling better, just very tired and with ongoing chest heaviness and back pain. Objective Vital signs: Temperature 98.5 F 04/10/17 08:20 Pulse Rate 70 04/10/17 11:33 Respiratory Rate 16 04/10/17 11:33 Blood Pressure 124/69 04/10/17 11:33 Pulse Oximetry 97 04/10/17 11:33 Oxygen Delivery Method Room Air Body Mass Index: 41.4 - Constitutional Present: no acute distress, well nourished, well developed, morbidly obese - Routine HEENT Exam Head: Present: normocephalic Eye: Absent: conjunctival icterus ENT: Present: mucous membranes moist, oropharynx clear Comments: Tenderness over the left occiput and left cervical paraspinal muscles into her left trapezius - Routine Respiratory Exam Present: CTA bilaterally - Routine Cardiovascular Exam Present: RRR, S1, S2 - Routine Abdominal Exam Present: soft, normoactive bowel sounds, non distended, non tender - Routine Extremities Exam Present: pulses intact, normal capillary refill. Absent: edema - Routine Back/Spine/Pelvis Exam Back image: 1 - Tenderness on palpation 2 - Pain and tenderness Comments: Tenderness over the medial border of the left scapula - Routine Musculoskeletal Exam Musculoskeletal: Present: no joint swelling - Routine Skin Exam Present: intact, dry, warm - Routine Neurological Exam Present: alert, oriented X3, motor deficit (weakness on right arm, right leg) - Routine Psychiatric Exam Present: normal affect, normal thought process Results - Labs CBC & Chem 7: 04/10/17 11:46 04/10/17 11:46 Assessment and Plan (1) AIDS (acquired immunodeficiency syndrome), CD4 >200 and <500 Current visit: Yes Status: Chronic (2) Toxoplasmosis Current visit: Yes Status: Chronic (3) Seizures Current visit: Yes Status: Chronic (4) Neuropathy Current visit: Yes Status: Chronic (5) Hypothyroidism Current visit: Yes Status: Chronic (6) GERD (gastroesophageal reflux disease) Current visit: Yes Status: Chronic (7) Weakness of right side of body Current visit: Yes Status: Acute (8) Debility Current visit: Yes Status: Acute (9) Iron deficiency anemia Current visit: Yes Status: Chronic 04/09/17 17:47 Iron 34, TIBC 507, iron saturation 7%, ferritin 9, vitamin B-12 534 on 03/22/17 Assessment and Plan: Reproducible chest pain, back pain. Also with episodic dizziness, diaphoresis, and nausea with activity -EKG shows sinus rhythm, will repeat one now -Obtain chest x-ray -Reassess CBC and CMP -Continue to monitor blood pressure and orthostatic vital signs -Strong suspicion this is muscular in nature with reproducibility -Recommend supportive cares, pain control, continue therapy -Flexeril was discontinued per attending because of increased weakness this morning, which has since improved Right-sided weakness -Per attending Iron deficiency anemia -Continue iron supplement Will discuss further with Dr. Urbina 6501: repeat EKG is nearly identical to the one done on 04/07 - T wave flattening/ inversion in lead III; underlying rhythm sinus without ectopy or ST elevation/ depression; good R wave progression; normal axis Labs: CMP unremarkable; persistent leukopenia and anemia as before CXR: personally reviewed; no infiltrates, failure, or obvious abnormality Sepsis Assessment - Evaluation Sepsis screening result: No Definite Risk Hospital Course Summary Disclaimer: The visit summary below is not to be considered part of the above Progress Note. Hospital Course: 04/07/17 15:45 -Debility secondary to acute illness and right sided weakness. .Agree with the admission to IRU under the care of Dr. Eason. Consult hospitalist service for medical management. .Provide a safe and supportive environment and encourage participation in therapies. .Recent MRI was unremarkable as was CT head. .Will obtain admission work up including CBC and CMP to monitor blood counts , electrolytes and renal function. .Patient reports episodes of hypoglycemia. Will obtain BMGs and monitor closely. .SCDs for DVT prophylaxis. -AIDS with toxoplasmosis, MAC. .Patient follows with Dr. Era Barrientos in [place]. .Continue home medications Tivicay and Descovy. Patient's family to bring her medications to hospital so she can take her own meds. .Viral load 70 and RPR negative on 03/29/17. .Patient off dapsone for PCP as CD4>200 consistently x 3 months (CD4 on 12/21 = 239, CD4 on 03/29 = 293) .Continue active therapy for toxoplasmosis 6 more weeks including clindamycin 600mg Q6H, Leucovorin 25mg PO daily and Daraprim 75mg po daily. .Records from [facility] indicate dosing will change to maintenance therapy for toxoplasmosis on 05/10/17 - clindamycin 800mg Q8H, daraprim 50mg daily and leucovorin daily, presumed to be at 25mg. -History of seizures. .Monitor closely for seizure activity. Seizure precautions. .Ativan 0.5mg PRN seizures. .[place] [facility] [place] or [place] activity. .Encourage follow up with Dr. Cameron as outpatient . .Continue Keppra 1500mg BID. -Neuropathy. .Continue home gabapentin. -Hypothyroidism. .Will check TSH now and continue home synthyroid. -GERD. .Continue home protonix. Appreciate the ability to assist in the care of Yesenia. Upon discharge, her care will be returned to her PCP, Dr. Barrientos. 04/10/17 12:17 Reproducible chest pain, back pain. Also with episodic dizziness, diaphoresis, and nausea with activity -EKG shows sinus rhythm, will repeat one now -Obtain chest x-ray -Reassess CBC and CMP -Continue to monitor blood pressure and orthostatic vital signs -Strong suspicion this is muscular in nature with reproducibility -Recommend supportive cares, pain control, continue therapy -Flexeril was discontinued per attending because of increased weakness this morning, which has since improved Right-sided weakness -Per attending Iron deficiency anemia -Continue iron supplement 1530: repeat EKG is nearly identical to the one done on 04/07 - T wave flattening/ inversion in lead III; underlying rhythm sinus without ectopy or ST elevation/ depression; good R wave progression; normal axis Labs: CMP unremarkable; persistent leukopenia and anemia as before CXR: personally reviewed; no infiltrates, failure, or obvious abnormality <Tomasa Urbina - Last Filed: 04/10/17 16:18> Objective Vital signs: Temperature 98.5 F 04/10/17 08:20 Pulse Rate 70 04/10/17 11:33 Respiratory Rate 16 04/10/17 15:20 Blood Pressure 124/69 04/10/17 11:33 Pulse Oximetry 97 04/10/17 11:33 Oxygen Delivery Method Room Air Results - Labs CBC & Chem 7: 04/10/17 11:46 04/10/17 11:46 Assessment and Plan (1) AIDS (acquired immunodeficiency syndrome), CD4 >200 and <500 Current visit: Yes Status: Chronic (2) Toxoplasmosis Current visit: Yes Status: Chronic (3) Seizures Current visit: Yes Status: Chronic (4) Neuropathy Current visit: Yes Status: Chronic (5) Hypothyroidism Current visit: Yes Status: Chronic (6) GERD (gastroesophageal reflux disease) Current visit: Yes Status: Chronic (7) Weakness of right side of body Current visit: Yes Status: Acute (8) Debility Current visit: Yes Status: Acute (9) Iron deficiency anemia Current visit: Yes Status: Chronic (10) Muscle spasm of back Current visit: Yes Status: Acute Assessment and Plan: I have independently evaluated and examined this patient. I reviewed the chart, the patient's history, and the PIPELAYER's documented findings as above. We discussed and formulated the assessment and plan as above with additions as below: Yesenia describes upper back and neck pain for the past 2 weeks. Pain worsens with inspiration as noted and with movements. She is comfortable at present and indicates that the muscle relaxant helped but caused excessive drowsiness this morning. She was reassured that her chest x-ray was unremarkable and labs were fine. Respirations nonlabored, breath sounds clear. Regular cardiac rhythm, distant heart tones, S1 and S2. Abdomen soft, nontender, obese. Upper lookback coordinator to palpation across scapula and along the paraspinal musculature. Chest x-ray reviewed by myself-unremarkable, EKG without acute change, laboratory data unremarkable. Agree pain is muscular in origin and likely triggered by prior seizure activity. Continue conservative management with modalities per physical therapy and stretching. Hospital Course Summary Disclaimer: The visit summary below is not to be considered part of the above Progress Note.
--- NOTE | 2017-04-10 15:25 | XRay Report ---
INDICATION: dyspnea with chest pain PROCEDURE: CHEST 2-VIEWS UPRIGHT (PA & LAT) Encounter: Initial COMPARISON: October 03, 2016 FINDINGS: The lungs are clear without evidence of focal abnormal airspace opacity. There is no pleural effusion or pneumothorax. The heart size, mediastinal contours and pulmonary vascularity are within normal limits. There is no significant skeletal abnormality. IMPRESSION: No acute cardiopulmonary disease. .
[2017-04-10] MEDS: MONTELUKAST 10 MG TABLET PO SCH (22:19)
[2017-04-11] MEDS: CLINDAMYCIN 300 MG CAPSULE PO SCH ×4 (01:18→20:19)
[2017-04-11] MEDS: PANTOPRAZOLE 40 MG TABLET PO SCH ×3 (05:12→17:27)
[2017-04-11] MEDS: ONDANSETRON ODT 4 MG TABLET PO SCH ×4 (05:12→21:30)
[2017-04-11] MEDS: LEVOTHYROXINE 75 MCG TABLET PO SCH ×2 (05:12→06:46)
[2017-04-11] MEDS: DAPSONE 100 MG TABLET PO SCH (08:45)
[2017-04-11] MEDS: LEVETIRACETAM 500 MG TABLET PO SCH ×2 (08:57→20:20)
[2017-04-11] MEDS: FERROUS GLUCONATE 324 MG TABLET PO SCH (08:57)
[2017-04-11] MEDS: GABAPENTIN 600 MG TABLET PO SCH ×3 (08:57→20:20)
[2017-04-11] MEDS: [UNRECOGNIZED DRUG - OTHER] PO SCH (08:58)
[2017-04-11] MEDS: ERGOCALCIFEROL 50,000 UNIT CAPSULE PO SCH (08:58)
[2017-04-11] MEDS: MULTI-VITAMIN + IRON TABLET PO SCH (08:58)
[2017-04-11] MEDS: [UNRECOGNIZED DRUG - OTHER] PO SCH (09:00)
[2017-04-11] MEDS: LEUCOVORIN 25 MG PO SCH (09:00)
[2017-04-11] MEDS: EMTRICITABINE PO SCH (09:00)
[2017-04-11] MEDS: TENOFOVIR ALAFENAMIDE PO SCH (09:00)
[2017-04-11] MEDS: DOLUTEGRAVIR SODIUM 50 MG PO SCH (09:00)
[2017-04-11] MEDS: ENOXAPARIN 40 MG/0.4 ML INJECTION SQ SCH (09:01)
[2017-04-11] MEDS: ALBUTEROL 2.5mg/3ml (0.083%) NEB AEROSOL SCH ×3 (09:07→20:38)
--- NOTE | 2017-04-11 10:21 | IRU Progress Note ---
- Subjective/Serverity of Illness Yesenia was evaluated in her room with her daughter present. She is doing much better today. Continues to have left anterior chest discomfort with taking a deep breath. However she is relieved that there was no evidence of underlying cardiac problem. It is present only with a deep breath. Denies any shortness of breath. In addition, her neck pain is improved. Strength in the right lower extremity remains reduced and she describes this as a "heaviness." However strength in the upper extremity is much improved. Continues to have some weakness subjectively speaking but she says it is doing much better. She is working well with therapies. Exam Vital Signs: Temperature 98.8 F 04/11/17 07:20 Pulse Rate 67 04/11/17 08:00 Respiratory Rate 16 04/11/17 09:07 Blood Pressure 111/65 04/11/17 08:00 Pulse Oximetry 93 04/11/17 09:07 Oxygen Delivery Method Room Air Height: 1.57 m Weight: 102.7 kg Body Mass Index: 41.4 - Constitutional Present: no acute distress, well nourished, well developed - Routine HEENT Exam Head: Present: normocephalic Eye: Present: EOMI - Routine Neck Exam Present: supple, full ROM - Routine Respiratory Exam Present: CTA bilaterally - Routine Cardiovascular Exam Present: RRR, S1, S2, no murmur - Routine Abdominal Exam Present: soft, normoactive bowel sounds, non distended, non tender - Routine Extremities Exam Present: no edema - Routine Neurological Exam Present: alert, oriented X3 She is much more awake and alert today. Strength continues to be somewhat reduced in the right side compared to the left. However it is certainly improved particularly in the right upper extremity. There is no facial droop that I can identify at this time. - Routine Psychiatric Exam Present: normal affect. Absent: agitated Sepsis Assessment - Evaluation Sepsis screening result: No Definite Risk IRU A/P (1) AIDS (acquired immunodeficiency syndrome), CD4 >200 and <500 Current visit: Yes Status: Chronic She is on the phone to her pharmacy acquiring more medications. No evidence of active infection at present apart from what is being treated. (2) Toxoplasmosis Current visit: Yes Status: Chronic (3) Seizures Current visit: Yes Status: Chronic (4) Neuropathy Current visit: Yes Status: Chronic (5) Hypothyroidism Current visit: Yes Status: Chronic (6) GERD (gastroesophageal reflux disease) Current visit: Yes Status: Chronic (7) Weakness of right side of body Current visit: Yes Status: Acute She is improved with regard to weakness in the right upper extremity. She says that the right leg continues to be weak and heavy. However she is improving with therapies. (8) Debility Current visit: Yes Status: Acute Her energy level is improved. She is much more awake and alert. Strengthening appears to be improved. (9) Iron deficiency anemia Current visit: Yes Status: Chronic DVT Prophylaxis: SCD's, Lovenox Resuscitation Status: Full Code - Course Hospital Course: Jackson Eason MD: - Interventions to Obtain Goals PT Treatment Plan: Balance/Proprioception, Functional Activities, Gait Training , Patient/Family Education, Therapeutic Exercise OT Treatment Plan: ADL (Basic Care), Balance Training, Pt./Family Education, Sensory Integration, UE Functional Training
--- NOTE | 2017-04-11 10:26 | IRU Plan of Care ---
[facility] Overall Plan of Care - Date Date: 04/11/17 - Patient Impairments (1) AIDS (acquired immunodeficiency syndrome), CD4 >200 and <500 Code(s): B20 - Human immunodeficiency virus [HIV] disease Status: Chronic (2) Toxoplasmosis Code(s): B58.9 - Toxoplasmosis, unspecified Status: Chronic (3) Seizures Code(s): R56.9 - Unspecified convulsions Status: Chronic (4) Neuropathy Code(s): G62.9 - Polyneuropathy, unspecified Status: Chronic (5) Hypothyroidism Qualifiers: Hypothyroidism type: acquired Qualified Code(s): E03.9 - Hypothyroidism, unspecified Code(s): E03.9 - Hypothyroidism, unspecified Status: Chronic Classification: Present on IRF Admission (6) GERD (gastroesophageal reflux disease) Code(s): K21.9 - Gastro-esophageal reflux disease without esophagitis Status: Chronic (7) Weakness of right side of body Code(s): R53.1 - Weakness Status: Acute Classification: Present on IRF Admission, IRF Tx That Should Address Diagnosis (8) Debility Code(s): R53.81 - Other malaise Status: Acute Classification: Present on IRF Admission, IRF Tx That Should Address Diagnosis (9) Iron deficiency anemia Code(s): D50.9 - Iron deficiency anemia, unspecified Status: Chronic (10) Muscle spasm of back Code(s): M62.830 - Muscle spasm of back Status: Acute - Relevant Changes Relevant Changes: No Reviewed: I have reviewed the patient's information and concur with the finding and results of the pre-admission screen. Certification: I certify the patient for rehabilitation. - Medical Prognosis Medical Prognosis: Good Vital Signs: Last Vital Signs Temp 98.8 F 04/11/17 07:20 Pulse 67 04/11/17 08:00 Resp 16 04/11/17 09:07 BP 111/65 04/11/17 08:00 Pulse Ox 93 04/11/17 09:07 - Anticipated Interventions Anticipated Interventions: The patient requires inpatient IRF care for PT, OT, and/or ST for residuals remaining from recent neurologic event resulting in worsening right sided weakness and lack of coordination as well as strength deficits. Strength Deficits: Right Upper Extremity, Right Lower Extremity - FIM Ambulation Distance: 98 Wheelchair Propulsion Distance: 115 Toileting Adaptive Equipment: Grab Bars Number of Continent Voids: 1 Number of Incontinent Voids: 0 - Current Functional Status Patient Requires: The patient requires oversight by rehabilitation physician to manage their rehabilitation treatment plan and multidisciplinary approach to care that can only be provided in an IRF and requires a multidisciplinary approach to care, provided by professional PTs, OTs, STs, dieticians, RTs, rehabilitation nurses and is not available in lesser levels of care. Physical Therapy Minutes: 90 Occupational Therapy Minutes: 90 Therapy: The patient is to receive therapy at least 5 days a week. - Anticipated LOS/Outcomes Anticipated Functional Outcome: Return to home with assistance of family. Anticipated DC Destination: Home, Self [facility] Safety Plan: The patient will be provided with the development of a Home Safety Plan for return to a home or home-like environment and and to ensure safety post discharge. - Plan to Avoid Complications Barriers to Attaining Goals: Weakness, Endurance, Medical Limitation Plan to Avoid Complications: The patient cannot receive this care in a lesser intensive setting such as Custodial or Outpatient Therapy due to the patient requiring the following . 24 hour nursing coverage, close medical supervision for chest discomfort, worsened right upper and lower extremity weakness and monitoring for infections , intensive rehabilitative therapy.
[2017-04-11] MEDS: MONTELUKAST 10 MG TABLET PO SCH ×2 (20:20→21:29)
[2017-04-11] MEDS: SENNA + DOCUSATE TABLET PO SCH (20:29)
[2017-04-12] MEDS: CLINDAMYCIN 300 MG CAPSULE PO SCH ×4 (02:12→19:55)
[2017-04-12] MEDS: LEVOTHYROXINE 75 MCG TABLET PO SCH (06:21)
[2017-04-12] MEDS: PANTOPRAZOLE 40 MG TABLET PO SCH ×2 (06:21→17:26)
[2017-04-12] MEDS: ONDANSETRON ODT 4 MG TABLET PO SCH ×3 (06:21→21:18)
[2017-04-12] MEDS: ALBUTEROL 2.5mg/3ml (0.083%) NEB AEROSOL SCH ×3 (07:09→21:44)
[2017-04-12] MEDS: SENNA + DOCUSATE TABLET PO SCH ×2 (08:50→21:17)
[2017-04-12] MEDS: FERROUS GLUCONATE 324 MG TABLET PO SCH (08:50)
[2017-04-12] MEDS: ENOXAPARIN 40 MG/0.4 ML INJECTION SQ SCH (08:50)
[2017-04-12] MEDS: MULTI-VITAMIN + IRON TABLET PO SCH (08:50)
[2017-04-12] MEDS: LEVETIRACETAM 500 MG TABLET PO SCH ×2 (08:51→21:16)
[2017-04-12] MEDS: GABAPENTIN 600 MG TABLET PO SCH ×3 (08:51→21:17)
[2017-04-12] MEDS: DAPSONE 100 MG TABLET PO SCH (08:51)
[2017-04-12] MEDS: DOLUTEGRAVIR SODIUM 50 MG PO SCH (08:51)
[2017-04-12] MEDS: LEUCOVORIN 25 MG PO SCH (08:52)
[2017-04-12] MEDS: [UNRECOGNIZED DRUG - OTHER] PO SCH (08:52)
[2017-04-12] MEDS: EMTRICITABINE PO SCH (08:52)
[2017-04-12] MEDS: TENOFOVIR ALAFENAMIDE PO SCH (08:52)
[2017-04-12] MEDS: [UNRECOGNIZED DRUG - OTHER] PO SCH (08:53)
[2017-04-12] MEDS: Oxycodone *IR* 5 MG TABLET PO PRN (09:32)
--- NOTE | 2017-04-12 10:28 | Progress Note ---
Subjective: Yesenia was seen while working with therapy outside. Her daughter was again present and helped to translate. She was in no acute distress and smiled frequently. She still states that her pain is the same. She complains of left rib pain, chest pain and back pain. She also still has left occipital pain and left-sided neck pain. She states her back hurt while she was in the shower, but the shower felt good. She denies any shortness of breath. No abdominal pain or GI complaints. I explained to her that the pain will gradually improve, but we can restart some pain medicine at a lower dose to help take the edge off and make the pain more tolerable. She voiced an understanding and agreement. Objective Vital signs: Temperature 98.6 F 04/12/17 07:57 Pulse Rate 72 04/12/17 08:00 Respiratory Rate 16 04/12/17 07:57 Blood Pressure 85/53 04/12/17 08:00 Pulse Oximetry 98 04/12/17 07:57 Oxygen Delivery Method Room Air Body Mass Index: 41.4 - Constitutional Present: no acute distress, well nourished, well developed, obese - Routine HEENT Exam ENT: Present: mucous membranes moist - Routine Respiratory Exam Present: CTA bilaterally - Routine Cardiovascular Exam Present: RRR, S1, S2 - Routine Abdominal Exam Present: soft, normoactive bowel sounds, non distended, non tender - Routine Extremities Exam Present: no edema - Routine Musculoskeletal Exam Musculoskeletal: Absent: normal strength (Rt side weakness) - Routine Skin Exam Present: intact, dry, warm - Routine Neurological Exam Present: alert, oriented X3 - Routine Psychiatric Exam Present: normal affect, normal thought process Results - Labs CBC & Chem 7: 04/11/17 05:04 04/10/17 11:46 Assessment and Plan (1) AIDS (acquired immunodeficiency syndrome), CD4 >200 and <500 Current visit: Yes Status: Chronic (2) Toxoplasmosis Current visit: Yes Status: Chronic (3) Seizures Current visit: Yes Status: Chronic (4) Neuropathy Current visit: Yes Status: Chronic (5) Hypothyroidism Current visit: Yes Status: Chronic (6) GERD (gastroesophageal reflux disease) Current visit: Yes Status: Chronic (7) Weakness of right side of body Current visit: Yes Status: Acute (8) Debility Current visit: Yes Status: Acute (9) Iron deficiency anemia Current visit: Yes Status: Chronic 04/09/17 17:47 Iron 34, TIBC 507, iron saturation 7%, ferritin 9, vitamin B-12 534 on 03/22/17 (10) Muscle spasm of back Current visit: Yes Status: Acute Assessment and Plan: Back/Chest/Neck pain -discussed with Dr. Eason - he will resume Flexeril at a lower dose; monitor closely for mental status changes/lethargy -continue PT/OT AIDS with toxoplasmosis, MAC. -Continue Tivicay and Descovy. Patient's family to bring her medications to hospital so she can take her own meds. -Viral load 70 and RPR negative on 03/29/17. -Patient off dapsone for PCP as CD4>200 consistently x 3 months (CD4 on 12/21 = 239, CD4 on 03/29 = 293) -Continue active therapy for toxoplasmosis 6 more weeks including clindamycin 600mg Q6H, Leucovorin 25mg PO daily and Daraprim 75mg po daily. -Records from [facility] indicate dosing will change to maintenance therapy for toxoplasmosis on 05/10/17 - clindamycin 800mg Q8H, daraprim 50mg daily and leucovorin daily, presumed to be at 25mg. Leukopenia with predominance of lymphocytes -recheck CBC in am Rt sided weakness -per attending; continue PT/OT Sepsis Assessment - Evaluation Sepsis screening result: No Definite Risk Hospital Course Summary Disclaimer: The visit summary below is not to be considered part of the above Progress Note. Hospital Course: 04/07/17 15:45 -Debility secondary to acute illness and right sided weakness. .Agree with the admission to IRU under the care of Dr. Eason. Consult hospitalist service for medical management. .Provide a safe and supportive environment and encourage participation in therapies. .Recent MRI was unremarkable as was CT head. .Will obtain admission work up including CBC and CMP to monitor blood counts , electrolytes and renal function. .Patient reports episodes of hypoglycemia. Will obtain BMGs and monitor closely. .SCDs for DVT prophylaxis. -AIDS with toxoplasmosis, MAC. .Patient follows with Dr. Era Barrientos in [place]. .Continue home medications Tivicay and Descovy. Patient's family to bring her medications to hospital so she can take her own meds. .Viral load 70 and RPR negative on 03/29/17. .Patient off dapsone for PCP as CD4>200 consistently x 3 months (CD4 on 12/21 = 239, CD4 on 03/29 = 293) .Continue active therapy for toxoplasmosis 6 more weeks including clindamycin 600mg Q6H, Leucovorin 25mg PO daily and Daraprim 75mg po daily. .Records from [facility] indicate dosing will change to maintenance therapy for toxoplasmosis on 05/10/17 - clindamycin 800mg Q8H, daraprim 50mg daily and leucovorin daily, presumed to be at 25mg. -History of seizures. .Monitor closely for seizure activity. Seizure precautions. .Ativan 0.5mg PRN seizures. .[place] [facility] [place] or [place] activity. .Encourage follow up with Dr. Cameron as outpatient . .Continue Keppra 1500mg BID. -Neuropathy. .Continue home gabapentin. -Hypothyroidism. .Will check TSH now and continue home synthyroid. -GERD. .Continue home protonix. Appreciate the ability to assist in the care of Yesenia. Upon discharge, her care will be returned to her PCP, Dr. Barrientos. 04/10/17 12:17 Reproducible chest pain, back pain. Also with episodic dizziness, diaphoresis, and nausea with activity -EKG shows sinus rhythm, will repeat one now -Obtain chest x-ray -Reassess CBC and CMP -Continue to monitor blood pressure and orthostatic vital signs -Strong suspicion this is muscular in nature with reproducibility -Recommend supportive cares, pain control, continue therapy -Flexeril was discontinued per attending because of increased weakness this morning, which has since improved Right-sided weakness -Per attending Iron deficiency anemia -Continue iron supplement 1530: repeat EKG is nearly identical to the one done on 04/07 - T wave flattening/ inversion in lead III; underlying rhythm sinus without ectopy or ST elevation/ depression; good R wave progression; normal axis Labs: CMP unremarkable; persistent leukopenia and anemia as before CXR: personally reviewed; no infiltrates, failure, or obvious abnormality 04/12/17 10:33 Back/Chest/Neck pain -discussed with Dr. Eason - he will resume Flexeril at a lower dose; monitor closely for mental status changes/lethargy -continue PT/OT AIDS with toxoplasmosis, MAC. -Continue Tivicay and Descovy. Patient's family to bring her medications to hospital so she can take her own meds. -Viral load 70 and RPR negative on 03/29/17. -Patient off dapsone for PCP as CD4>200 consistently x 3 months (CD4 on 12/21 = 239, CD4 on 03/29 = 293) -Continue active therapy for toxoplasmosis 6 more weeks including clindamycin 600mg Q6H, Leucovorin 25mg PO daily and Daraprim 75mg po daily. -Records from [facility] indicate dosing will change to maintenance therapy for toxoplasmosis on 05/10/17 - clindamycin 800mg Q8H, daraprim 50mg daily and leucovorin daily, presumed to be at 25mg. Leukopenia with predominance of lymphocytes -recheck CBC in am Rt sided weakness -per attending; continue PT/OT
[2017-04-12] MEDS ORDERED: CYCLOBENZAPRINE 5 MG TABLET PO PRN (10:49)
--- NOTE | 2017-04-12 11:18 | IRU Progress Note ---
- Subjective/Serverity of Illness Yesenia was evaluated in her room after therapy today. Her daughter is present and helps with translation. Yesenia would like to have some more of the Flexeril. We had given her the 10 mg size previously for some neck muscle spasm. This did help the discomfort although made her more sleepy the next morning. She would like a lower dose. I have discussed with the hospitalist service and we agreed that I will manage the pain medications while on the unit. She states that she does have some lightheadedness etc. now. I told her that the Flexeril would not help that but it would help the muscle spasm. She would like to try some. We will make it available at a dose of 5 mg 3 times daily as needed for muscle spasm. In addition we will add on Tylenol as needed. I did warn her of excess drowsiness with regard to this medication. If this interferes with her therapy we may need to back off. She continues to have sharp left anterior chest discomfort. Continues to feel like an electrical shock and increases with a deep breath. Does not sound like angina. We are continuing interdisciplinary therapies in an intensive manner. She is cooperative with therapy. She does get fatigued with therapy. Continues to have some significant weakness in the right lower and upper extremity. Right upper extremity appears to be improving. She has noted some difference in size of her right thigh compared to the left. However there is no edema downstream and think this is likely a muscular issue rather than any evidence of DVT etc. Appetite remains good. Exam Vital Signs: Temperature 98.6 F 04/12/17 07:57 Pulse Rate 72 04/12/17 08:00 Respiratory Rate 16 04/12/17 07:57 Blood Pressure 85/53 04/12/17 08:00 Pulse Oximetry 98 04/12/17 07:57 Oxygen Delivery Method Room Air Height: 1.57 m Weight: 102.7 kg Body Mass Index: 41.4 - Constitutional Present: mild distress Comments: She is sitting in her room in her chair after therapy. She is fatigued at present. Does report some lightheadedness. - Routine HEENT Exam Head: Present: normocephalic, atraumatic Eye: Present: EOMI, conjunctivae pink. Absent: scleral injection ENT: Present: mucous membranes moist - Routine Neck Exam Present: supple, full ROM - Routine Respiratory Exam Present: CTA bilaterally. Absent: dyspnea - Routine Cardiovascular Exam Present: RRR, S1, S2, no murmur - Routine Abdominal Exam Present: soft, normoactive bowel sounds, non distended, non tender - Routine Extremities Exam Present: no edema Comments: She points out that her right thigh is larger than her left. However there is no edema in the lower part of the right leg. I think this is a difference in muscle size most likely. It may be related to the fact that she is not using it as much as the left side. - Routine Skin Exam Present: intact. Absent: cyanosis, erythema - Routine Neurological Exam Present: alert, oriented X3, motor deficit She is awake and alert although fatigue. I did assess her strength today. 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 In addition, her flexion and extension strength is reduced in the right upper extremity compared to the left. She is able to ambulate with a walker. Does have left lower extremity weakness as well. - Routine Psychiatric Exam Present: normal affect, anxious Sepsis Assessment - Evaluation Sepsis screening result: No Definite Risk IRU A/P (1) AIDS (acquired immunodeficiency syndrome), CD4 >200 and <500 Current visit: Yes Status: Chronic Stable on medication. (2) Toxoplasmosis Current visit: Yes Status: Chronic Continues to receive maintenance treatment. She is on clindamycin. (3) Seizures Current visit: Yes Status: Chronic (4) Neuropathy Current visit: Yes Status: Chronic (5) Hypothyroidism Qualifiers: Hypothyroidism type: acquired Qualified Code(s): E03.9 - Hypothyroidism, unspecified Current visit: Yes Status: Chronic (6) GERD (gastroesophageal reflux disease) Current visit: Yes Status: Chronic (7) Weakness of right side of body Current visit: Yes Status: Acute She is receiving multidisciplinary intensive therapies for her right-sided weakness. (8) Debility Current visit: Yes Status: Acute Continues to display significant debility. She does have episodes of lightheadedness. May be related to her previous mass excised from her left hemisphere versus a more recent spell she had an [place]. (9) Iron deficiency anemia Current visit: Yes Status: Chronic (10) Muscle spasm of back Current visit: Yes Status: Acute She requests Flexeril. As noted above, she did have significant fatigue and lethargy after she took the 10 mg size. We will offer the 5 mg size 3 times daily as needed for muscle spasm. DVT Prophylaxis: SCD's, Lovenox Resuscitation Status: Full Code - Course Hospital Course: Jackson Eason MD: - Interventions to Obtain Goals PT Treatment Plan: Balance/Proprioception, Functional Activities, Gait Training , Patient/Family Education, Therapeutic Exercise OT Treatment Plan: ADL (Basic Care), Balance Training, Pt./Family Education, Sensory Integration, UE Functional Training
[2017-04-12] MEDS ORDERED: FALL RISK - PHARMACY CONSULT XX PRN (11:22)
[2017-04-12] MEDS: ACETAMINOPHEN 325 MG TABLET PO PRN (14:01)
[2017-04-12] MEDS: CYCLOBENZAPRINE 5 MG TABLET PO PRN (18:18)
[2017-04-12] MEDS: MONTELUKAST 10 MG TABLET PO SCH (21:19)
[2017-04-13] MEDS: CLINDAMYCIN 300 MG CAPSULE PO SCH ×4 (02:07→20:38)
[2017-04-13] MEDS: ONDANSETRON ODT 4 MG TABLET PO SCH ×3 (06:20→22:16)
[2017-04-13] MEDS: Oxycodone *IR* 5 MG TABLET PO PRN ×3 (06:20→18:23)
[2017-04-13] MEDS: LEVOTHYROXINE 75 MCG TABLET PO SCH (06:20)
[2017-04-13] MEDS: PANTOPRAZOLE 40 MG TABLET PO SCH ×2 (06:20→16:50)
[2017-04-13] MEDS: ALBUTEROL 2.5mg/3ml (0.083%) NEB AEROSOL SCH ×3 (07:25→19:39)
[2017-04-13] MEDS: DAPSONE 100 MG TABLET PO SCH (08:11)
[2017-04-13] MEDS: LEVETIRACETAM 500 MG TABLET PO SCH ×2 (08:11→22:15)
[2017-04-13] MEDS: SENNA + DOCUSATE TABLET PO SCH ×2 (08:11→22:16)
[2017-04-13] MEDS: MULTI-VITAMIN + IRON TABLET PO SCH (08:11)
[2017-04-13] MEDS: GABAPENTIN 600 MG TABLET PO SCH ×3 (08:11→22:16)
[2017-04-13] MEDS: ENOXAPARIN 40 MG/0.4 ML INJECTION SQ SCH (08:11)
[2017-04-13] MEDS: FERROUS GLUCONATE 324 MG TABLET PO SCH (08:11)
[2017-04-13] MEDS: DOLUTEGRAVIR SODIUM 50 MG PO SCH (08:12)
[2017-04-13] MEDS: [UNRECOGNIZED DRUG - OTHER] PO SCH (08:13)
[2017-04-13] MEDS: LEUCOVORIN 25 MG PO SCH (08:14)
[2017-04-13] MEDS: EMTRICITABINE PO SCH (08:15)
[2017-04-13] MEDS: [UNRECOGNIZED DRUG - OTHER] PO SCH (08:15)
[2017-04-13] MEDS: TENOFOVIR ALAFENAMIDE PO SCH (08:15)
[2017-04-13] MEDS: ACETAMINOPHEN 325 MG TABLET PO PRN ×2 (12:16→18:23)
[2017-04-13] MEDS: MONTELUKAST 10 MG TABLET PO SCH (22:17)
[2017-04-14] MEDS: CLINDAMYCIN 300 MG CAPSULE PO SCH ×4 (05:11→20:04)
[2017-04-14] MEDS: ONDANSETRON ODT 4 MG TABLET PO SCH ×3 (06:46→21:48)
[2017-04-14] MEDS: LEVOTHYROXINE 75 MCG TABLET PO SCH (06:46)
[2017-04-14] MEDS: PANTOPRAZOLE 40 MG TABLET PO SCH ×2 (06:46→17:15)
[2017-04-14] MEDS: ALBUTEROL 2.5mg/3ml (0.083%) NEB AEROSOL SCH ×2 (07:45→19:16)
[2017-04-14] MEDS: FERROUS GLUCONATE 324 MG TABLET PO SCH (09:09)
[2017-04-14] MEDS: LEVETIRACETAM 500 MG TABLET PO SCH ×2 (09:09→21:47)
[2017-04-14] MEDS: DAPSONE 100 MG TABLET PO SCH (09:09)
[2017-04-14] MEDS: GABAPENTIN 600 MG TABLET PO SCH ×3 (09:10→21:46)
[2017-04-14] MEDS: ENOXAPARIN 40 MG/0.4 ML INJECTION SQ SCH (09:10)
[2017-04-14] MEDS: MULTI-VITAMIN + IRON TABLET PO SCH (09:11)
[2017-04-14] MEDS: SENNA + DOCUSATE TABLET PO SCH ×2 (09:11→21:46)
[2017-04-14] MEDS: DOLUTEGRAVIR SODIUM 50 MG PO SCH (09:12)
[2017-04-14] MEDS: EMTRICITABINE PO SCH (09:13)
[2017-04-14] MEDS: TENOFOVIR ALAFENAMIDE PO SCH (09:13)
[2017-04-14] MEDS: [UNRECOGNIZED DRUG - OTHER] PO SCH (09:13)
[2017-04-14] MEDS: [UNRECOGNIZED DRUG - OTHER] PO SCH (09:15)
[2017-04-14] MEDS: LEUCOVORIN 25 MG PO SCH (09:15)
[2017-04-14] MEDS ORDERED: FALL RISK - PHARMACY CONSULT MC PRN (11:20)
[2017-04-14] MEDS: MONTELUKAST 10 MG TABLET PO SCH (21:49)
[2017-04-15] MEDS: CLINDAMYCIN 300 MG CAPSULE PO SCH ×4 (02:15→20:29)
[2017-04-15] MEDS: LEVOTHYROXINE 75 MCG TABLET PO SCH (05:50)
[2017-04-15] MEDS: ONDANSETRON ODT 4 MG TABLET PO SCH ×3 (05:50→20:37)
[2017-04-15] MEDS: PANTOPRAZOLE 40 MG TABLET PO SCH ×2 (05:53→19:24)
[2017-04-15] MEDS: ALBUTEROL 2.5mg/3ml (0.083%) NEB AEROSOL SCH ×2 (07:02→19:10)
[2017-04-15] MEDS ORDERED: ONDANSETRON ODT 4 MG TABLET PO PRN (07:46)
[2017-04-15] MEDS: LEVETIRACETAM 500 MG TABLET PO SCH ×2 (09:12→20:36)
[2017-04-15] MEDS: ENOXAPARIN 40 MG/0.4 ML INJECTION SQ SCH (09:12)
[2017-04-15] MEDS: GABAPENTIN 600 MG TABLET PO SCH ×3 (09:13→20:37)
[2017-04-15] MEDS: FERROUS GLUCONATE 324 MG TABLET PO SCH (09:13)
[2017-04-15] MEDS: SENNA + DOCUSATE TABLET PO SCH ×2 (09:13→20:37)
[2017-04-15] MEDS: MULTI-VITAMIN + IRON TABLET PO SCH (09:13)
[2017-04-15] MEDS: DAPSONE 100 MG TABLET PO SCH (09:14)
[2017-04-15] MEDS: [UNRECOGNIZED DRUG - OTHER] PO SCH (09:16)
[2017-04-15] MEDS: DOLUTEGRAVIR SODIUM 50 MG PO SCH (09:17)
[2017-04-15] MEDS: LEUCOVORIN 25 MG PO SCH (09:17)
[2017-04-15] MEDS: EMTRICITABINE PO SCH (09:25)
[2017-04-15] MEDS: [UNRECOGNIZED DRUG - OTHER] PO SCH (09:25)
[2017-04-15] MEDS: TENOFOVIR ALAFENAMIDE PO SCH (09:25)
[2017-04-15] MEDS ORDERED: METOCLOPRAMIDE 10mg/2ml INJECTION IM SCH (10:00)
[2017-04-15] MEDS: CYCLOBENZAPRINE 5 MG TABLET PO PRN ×2 (10:09→20:39)
--- NOTE | 2017-04-15 10:41 | Progress Note ---
Subjective: Yesenia is seen this morning in follow up. She complains of have a sore throat this morning. It does not appear swollen or red. She told nursing she felt that she may had a "seizure" overnight because she is tired this morning. Currently on exam she appears comfortable in bed with her daughter at her bedside. Denies feeling dizzy, short of breath or chest pain. Objective Vital signs: Temperature 98.1 F 04/15/17 08:15 Pulse Rate 68 04/15/17 08:15 Respiratory Rate 20 04/15/17 08:15 Blood Pressure 108/64 04/15/17 08:15 Pulse Oximetry 94 04/15/17 08:15 Oxygen Delivery Method Room Air Weight: 105.5 kg - Constitutional Present: no acute distress - Routine HEENT Exam Head: Present: normocephalic, atraumatic Eye: Present: EOMI, PERRL ENT: Present: mucous membranes moist - Routine Respiratory Exam Present: CTA bilaterally - Routine Cardiovascular Exam Present: RRR, S1, S2 - Routine Abdominal Exam Present: soft, normoactive bowel sounds - Routine Extremities Exam Present: full ROM - Routine Back/Spine/Pelvis Exam Back/Spine: Present: full ROM - Routine Skin Exam Present: intact, dry, warm - Routine Neurological Exam Present: alert, oriented X3, CN II-XII intact, moving all extremities - Routine Psychiatric Exam Present: normal affect, normal thought process Results - Labs CBC & Chem 7: 04/13/17 04:46 04/13/17 04:46 Assessment and Plan (1) AIDS (acquired immunodeficiency syndrome), CD4 >200 and <500 Current visit: Yes Status: Chronic (2) Toxoplasmosis Current visit: Yes Status: Chronic (3) Seizures Current visit: Yes Status: Chronic (4) Neuropathy Current visit: Yes Status: Chronic (5) Hypothyroidism Current visit: Yes Status: Chronic (6) GERD (gastroesophageal reflux disease) Current visit: Yes Status: Chronic (7) Weakness of right side of body Current visit: Yes Status: Acute (8) Debility Current visit: Yes Status: Acute (9) Iron deficiency anemia Current visit: Yes Status: Chronic 04/09/17 17:47 Iron 34, TIBC 507, iron saturation 7%, ferritin 9, vitamin B-12 534 on 03/22/17 (10) Muscle spasm of back Current visit: Yes Status: Acute Assessment and Plan: 04/15/17 Nausea- Acute nausea this morning. Continue with scheduled Zofran 8 mg. Added IM Reglan. Will recheck later today Back/Chest/Neck pain -Continue with Tylenol, flexaril. Oxycodone available as needed for more severe pain - Continue to encourage work with physical therapy Rt sided weakness -appears to be intermittnet. Encouraged continued work with PT/OT. AIDS with toxoplasmosis, MAC. -Continue Tivicay and Descovy. Patient's family to bring her medications to hospital so she can take her own meds. -Viral load 70 and RPR negative on 03/29/17. -Patient off dapsone for PCP as CD4>200 consistently x 3 months (CD4 on 12/21 = 239, CD4 on 03/29 = 293) -Continue active therapy for toxoplasmosis 6 more weeks including clindamycin 600mg Q6H, Leucovorin 25mg PO daily and Daraprim 75mg po daily. -Records from [facility] indicate dosing will change to maintenance therapy for toxoplasmosis on 05/10/17 - clindamycin 800mg Q8H, daraprim 50mg daily and leucovorin daily, presumed to be at 25mg. Labs from 04/13 remained stable. Sepsis Assessment - Evaluation Sepsis screening result: No Definite Risk Hospital Course Summary Disclaimer: The visit summary below is not to be considered part of the above Progress Note. Hospital Course: 04/07/17 15:45 -Debility secondary to acute illness and right sided weakness. .Agree with the admission to IRU under the care of Dr. Eason. Consult hospitalist service for medical management. .Provide a safe and supportive environment and encourage participation in therapies. .Recent MRI was unremarkable as was CT head. .Will obtain admission work up including CBC and CMP to monitor blood counts , electrolytes and renal function. .Patient reports episodes of hypoglycemia. Will obtain BMGs and monitor closely. .SCDs for DVT prophylaxis. -AIDS with toxoplasmosis, MAC. .Patient follows with Dr. Era Barrientos in [place]. .Continue home medications Tivicay and Descovy. Patient's family to bring her medications to hospital so she can take her own meds. .Viral load 70 and RPR negative on 03/29/17. .Patient off dapsone for PCP as CD4>200 consistently x 3 months (CD4 on 12/21 = 239, CD4 on 03/29 = 293) .Continue active therapy for toxoplasmosis 6 more weeks including clindamycin 600mg Q6H, Leucovorin 25mg PO daily and Daraprim 75mg po daily. .Records from [facility] indicate dosing will change to maintenance therapy for toxoplasmosis on 05/10/17 - clindamycin 800mg Q8H, daraprim 50mg daily and leucovorin daily, presumed to be at 25mg. -History of seizures. .Monitor closely for seizure activity. Seizure precautions. .Ativan 0.5mg PRN seizures. .Prior EEG on 04/03/17 at [facility] showed no abnormalities or seizure activity. .Encourage follow up with Dr. Cameron as outpatient . .Continue Keppra 1500mg BID. -Neuropathy. .Continue home gabapentin. -Hypothyroidism. .Will check TSH now and continue home synthyroid. -GERD. .Continue home protonix. Appreciate the ability to assist in the care of Yesenia. Upon discharge, her care will be returned to her PCP, Dr. Barrientos. 04/10/17 12:17 Reproducible chest pain, back pain. Also with episodic dizziness, diaphoresis, and nausea with activity -EKG shows sinus rhythm, will repeat one now -Obtain chest x-ray -Reassess CBC and CMP -Continue to monitor blood pressure and orthostatic vital signs -Strong suspicion this is muscular in nature with reproducibility -Recommend supportive cares, pain control, continue therapy -Flexeril was discontinued per attending because of increased weakness this morning, which has since improved Right-sided weakness -Per attending Iron deficiency anemia -Continue iron supplement 1530: repeat EKG is nearly identical to the one done on 04/07 - T wave flattening/ inversion in lead III; underlying rhythm sinus without ectopy or ST elevation/ depression; good R wave progression; normal axis Labs: CMP unremarkable; persistent leukopenia and anemia as before CXR: personally reviewed; no infiltrates, failure, or obvious abnormality 04/12/17 10:33 Back/Chest/Neck pain -discussed with Dr. Eason - he will resume Flexeril at a lower dose; monitor closely for mental status changes/lethargy -continue PT/OT AIDS with toxoplasmosis, MAC. -Continue Tivicay and Descovy. Patient's family to bring her medications to hospital so she can take her own meds. -Viral load 70 and RPR negative on 03/29/17. -Patient off dapsone for PCP as CD4>200 consistently x 3 months (CD4 on 12/21 = 239, CD4 on 03/29 = 293) -Continue active therapy for toxoplasmosis 6 more weeks including clindamycin 600mg Q6H, Leucovorin 25mg PO daily and Daraprim 75mg po daily. -Records from [facility] indicate dosing will change to maintenance therapy for toxoplasmosis on 05/10/17 - clindamycin 800mg Q8H, daraprim 50mg daily and leucovorin daily, presumed to be at 25mg. Leukopenia with predominance of lymphocytes -recheck CBC in am Rt sided weakness -per attending; continue PT/OT
--- NOTE | 2017-04-15 12:33 | IRU Team Meeting ---
IRU Team Meeting - Nursing Vital Signs: Vital Signs - 24 hr 04/14/17 16:00 04/14/17 19:16 04/14/17 20:16 Temperature 98.9 F 98.5 F Pulse Rate 79 Pulse Rate [Orthostatic Lying] Pulse Rate [Orthostatic Sitting] Pulse Rate [Orthostatic Standing] Respiratory Rate 12 16 16 Blood Pressure 98/64 Blood Pressure [Orthostatic Lying] Blood Pressure [Orthostatic Sitting] Blood Pressure [Orthostatic Standing] Pulse Oximetry 95 99 04/14/17 20:17 04/15/17 02:38 04/15/17 07:03 Temperature Pulse Rate Pulse Rate [Orthostatic Lying] 76 Pulse Rate [Orthostatic Sitting] 73 Pulse Rate [Orthostatic Standing] 77 Respiratory Rate 16 Blood Pressure 133/95 H Blood Pressure [Orthostatic Lying] 118/65 Blood Pressure [Orthostatic Sitting] 120/78 Blood Pressure [Orthostatic Standing] 126/88 Pulse Oximetry 97 04/15/17 08:15 Temperature 98.1 F Pulse Rate 68 Pulse Rate [Orthostatic Lying] Pulse Rate [Orthostatic Sitting] Pulse Rate [Orthostatic Standing] Respiratory Rate 20 Blood Pressure 108/64 Blood Pressure [Orthostatic Lying] Blood Pressure [Orthostatic Sitting] Blood Pressure [Orthostatic Standing] Pulse Oximetry 94 Current Medications: Acetaminophen (Tylenol) 650 mg PO Q6H PRN PRN Reason: Pain Last Admin: 04/13/17 18:23 Dose: 650 mg Albuterol Sulfate (Proventil Neb (0.083%)) 2.5 mg AEROSOL RTBID [facility] Last Admin: 04/15/17 07:02 Dose: 2.5 mg Clindamycin HCl (Cleocin) 600 mg PO Q6H [facility] Last Admin: 04/15/17 09:13 Dose: 600 mg Cyclobenzaprine HCl (Flexeril) 5 mg PO TID PRN PRN Reason: Muscle spasm Last Admin: 04/15/17 10:09 Dose: 5 mg Dapsone (Aczone) 100 mg PO DAILY [facility] Last Admin: 04/15/17 09:14 Dose: 100 mg Enoxaparin Sodium (Lovenox) 40 mg SQ DAILY [facility] Last Admin: 04/15/17 09:12 Dose: 40 mg Ergocalciferol (Vitamin D-2) 50,000 unit PO TuTh@0900 [facility] Last Admin: 04/11/17 08:58 Dose: 50,000 unit Ferrous Gluconate (Fergon) 324 mg PO WB [facility] Last Admin: 04/15/17 09:13 Dose: 324 mg Gabapentin (Neurontin) 600 mg PO TID [facility] Last Admin: 04/15/17 09:13 Dose: 600 mg Hydroxyzine HCl (Atarax) 25 mg PO Q6H PRN Levetiracetam (Keppra) 1,500 mg PO BID [facility] Last Admin: 04/15/17 09:12 Dose: 1,500 mg Levothyroxine Sodium (Synthroid) 75 mcg PO ACB [facility] Last Admin: 04/15/17 05:50 Dose: 75 mcg Lorazepam (Ativan Inj) 0.5 mg IVP Q6H PRN Metoclopramide HCl (Reglan) 10 mg IM Q6H [facility] Last Admin: 04/15/17 10:01 Dose: 10 mg Montelukast Sodium (Singulair) 10 mg PO HS [facility] Last Admin: 04/14/17 21:49 Dose: 10 mg Morphine Sulfate (Morphine Sulfate Inj) 4 mg IVP Q4H PRN PRN Reason: Pain Multivitamins/Minerals (Theragran - H) 1 tab PO DAILY [facility] Last Admin: 04/15/17 09:13 Dose: 1 tab Dolutegravir Sodium [Tivicay] 50mg Tab - Pt Own 50 mg PO DAILY [facility] Last Admin: 04/15/17 09:17 Dose: 50 mg Emtricitabine/Tenofov [Descovy 200 -25mg] - Pt Own 1 tab PO DAILY [facility] Last Admin: 04/15/17 09:25 Dose: 1 tab Leucovorin 25mg Tab (- Pt Own) 25 PO DAILY [facility] Last Admin: 04/15/17 09:17 Dose: 25 Pyrimethamine 500 Mg (Tablet [Daraprim]) 3 tab PO DAILY [facility] Last Admin: 04/15/17 09:16 Dose: 3 tab Ondansetron HCl (Zofran Po) 8 mg PO Q8H [facility] Last Admin: 04/15/17 05:50 Dose: 8 mg Ondansetron HCl (Zofran Po) 4 mg PO Q6H PRN PRN Reason: Nausea &/or vomiting Oxycodone HCl (Roxicodone *Ir*) 5 mg PO Q6H PRN PRN Reason: Pain Last Admin: 04/13/17 18:23 Dose: 5 mg Pantoprazole Sodium (Protonix Tab) 40 mg PO ACBID [facility] Last Admin: 04/15/17 05:53 Dose: 40 mg Senna/Docusate Sodium (Senna Plus Tablet) 1 tab PO BID [facility] Last Admin: 04/15/17 09:13 Dose: 1 tab Comments: Pt concerned she may have had a seizure last night, but is not certain. Has post seizure sx of nausea, body aches. Vomited several times this am. Reglan helped and she was willing to work with staff. - Physical Therapy Comments: Standby assist in nearly all areas. 600 feet walking. Progressing and increasing tolerance for activity. Still having some confusion at night and requiring more assist during that time. - Occupational Therapy Lower Body Dressing Comment: See OT notes for eval. Pt pleasant and progressing toward goals. - Care Plan Anticipated Length of Stay: 7 (7-10 more days, unable to maintain indepence during night. Her daughter will be the only person at home during night.) Anticipated DC Destination: Home Health Service Interventions/Goals: Home with home health on d/c. Barriers to d/c: managing adl during night,stair stability,consistency and exercise tolerance. Pt very motivated to return home.
[2017-04-15] MEDS ORDERED: METOCLOPRAMIDE 10mg/2ml INJECTION IM PRN (13:43)
[2017-04-15] MEDS: ACETAMINOPHEN 325 MG TABLET PO PRN (14:02)
[2017-04-15] MEDS: MONTELUKAST 10 MG TABLET PO SCH (20:38)
[2017-04-16] MEDS: MONTELUKAST 10 MG TABLET PO SCH ×2 (01:59→22:12)
[2017-04-16] MEDS: CLINDAMYCIN 300 MG CAPSULE PO SCH ×4 (02:22→21:27)
--- NOTE | 2017-04-16 05:31 | IRU Progress Note ---
- Subjective/Serverity of Illness Seen on 04/15 after team meeting. Pt resting in recliner. She was active with PT and OT this am, plans on finishing full 3 hours this afternoon. Exam Vital Signs: Temperature 98.1 F 04/15/17 21:34 Pulse Rate 74 04/15/17 21:34 Respiratory Rate 16 04/15/17 21:34 Blood Pressure 102/55 04/15/17 21:34 Pulse Oximetry 94 04/15/17 21:34 Oxygen Delivery Method Room Air Telemetry Rhythm: Sinus Rhythm Height: 1.57 m Weight: 105.5 kg Body Mass Index: 41.4 - Constitutional Present: no acute distress - Routine HEENT Exam Head: Present: normocephalic - Routine Respiratory Exam Present: CTA bilaterally. Absent: wheezes - Routine Cardiovascular Exam Present: RRR. Absent: murmur Sepsis Assessment - Evaluation Sepsis screening result: No Definite Risk IRU A/P (1) AIDS (acquired immunodeficiency syndrome), CD4 >200 and <500 Current visit: Yes Status: Chronic followed by Medical service. ID if needed. (2) Neuropathy Current visit: Yes Status: Chronic PT and OT working to increase mobility and strength to overcome weakness assoc with neuropathy. (3) Weakness of right side of body Current visit: Yes Status: Acute Cont with PT and OT plan of care as reviewed today in team meeting. (4) Debility Current visit: Yes Status: Acute Cont to work with social work and therapies. DVT Prophylaxis: SCD's, Lovenox Resuscitation Status: Full Code - Course Hospital Course: Jackson Eason MD: - Interventions to Obtain Goals PT Treatment Plan: Balance/Proprioception, Functional Activities, Gait Training , Patient/Family Education, Therapeutic Exercise OT Treatment Plan: ADL (Basic Care), Balance Training, Pt./Family Education, Sensory Integration, UE Functional Training
[2017-04-16] MEDS: LEVOTHYROXINE 75 MCG TABLET PO SCH (05:52)
[2017-04-16] MEDS: ONDANSETRON ODT 4 MG TABLET PO SCH ×3 (05:52→21:29)
[2017-04-16] MEDS: PANTOPRAZOLE 40 MG TABLET PO SCH ×2 (05:52→18:01)
[2017-04-16] MEDS: ALBUTEROL 2.5mg/3ml (0.083%) NEB AEROSOL SCH ×2 (06:48→19:22)
[2017-04-16] MEDS: DAPSONE 100 MG TABLET PO SCH (09:04)
[2017-04-16] MEDS: FERROUS GLUCONATE 324 MG TABLET PO SCH (09:04)
[2017-04-16] MEDS: LEVETIRACETAM 500 MG TABLET PO SCH ×2 (09:05→21:28)
[2017-04-16] MEDS: [UNRECOGNIZED DRUG - OTHER] PO SCH (09:05)
[2017-04-16] MEDS: DOLUTEGRAVIR SODIUM 50 MG PO SCH (09:05)
[2017-04-16] MEDS: EMTRICITABINE PO SCH (09:05)
[2017-04-16] MEDS: TENOFOVIR ALAFENAMIDE PO SCH (09:05)
[2017-04-16] MEDS: LEUCOVORIN 25 MG PO SCH (09:06)
[2017-04-16] MEDS: GABAPENTIN 600 MG TABLET PO SCH ×3 (09:06→21:27)
[2017-04-16] MEDS: ENOXAPARIN 40 MG/0.4 ML INJECTION SQ SCH (09:06)
[2017-04-16] MEDS: SENNA + DOCUSATE TABLET PO SCH ×2 (09:07→21:28)
[2017-04-16] MEDS: MULTI-VITAMIN + IRON TABLET PO SCH (09:07)
[2017-04-16] MEDS: [UNRECOGNIZED DRUG - OTHER] PO SCH (09:07)
[2017-04-16] MEDS: ERGOCALCIFEROL 50,000 UNIT CAPSULE PO SCH (09:07)
[2017-04-16] MEDS: Oxycodone *IR* 5 MG TABLET PO PRN ×2 (11:37→18:01)
--- NOTE | 2017-04-16 16:13 | Progress Note ---
Subjective: Yesenia is seen urgently following phone call from nursing staff reporting shaking and "possible seizure". Yesenia was working with PT and began complaining of right side of the body tingling. She then had full body stiffness following unilateral right arm waving. She maintained her airway during this even with 98 % saturations. No incontinence or jaw clenching. It is reported the this morning while working with therapy she complained of chest pain that has now resolved. Objective Vital signs: Temperature 98.1 F 04/16/17 07:57 Pulse Rate 73 04/16/17 10:57 Respiratory Rate 12 04/16/17 07:57 Blood Pressure 138/85 04/16/17 10:57 Pulse Oximetry 96 04/16/17 10:57 Oxygen Delivery Method Room Air Body Mass Index: 41.4 - Constitutional Present: mild distress - Routine HEENT Exam Head: Present: normocephalic, atraumatic Eye: Present: PERRL ENT: Present: mucous membranes moist - Routine Respiratory Exam Present: CTA bilaterally. Absent: respiratory distress - Routine Cardiovascular Exam Present: RRR, S1, S2 - Routine Abdominal Exam Present: soft, normoactive bowel sounds - Routine Extremities Exam Present: full ROM - Routine Skin Exam Present: intact, dry, warm - Routine Neurological Exam Present: altered mental status, moving all extremities - Routine Psychiatric Exam Present: normal affect, normal thought process Results - Labs CBC & Chem 7: 04/13/17 04:46 04/13/17 04:46 Assessment and Plan (1) AIDS (acquired immunodeficiency syndrome), CD4 >200 and <500 Current visit: Yes Status: Chronic (2) Neuropathy Current visit: Yes Status: Chronic (3) Weakness of right side of body Current visit: Yes Status: Acute (4) Debility Current visit: Yes Status: Acute Assessment and Plan: 04/16/17 Seizure like activity- witnessed event is somewhat atypical for seizure-like activity. However, given patient's history of reported seizures. Will obtain a prolactin and Keppra level. Ativan IM ordered Back/Chest/Neck pain -Continue with Tylenol, flexaril. Oxycodone available as needed for more severe pain - Continue to encourage work with physical therapy Rt sided weakness -appears to be intermittent. Encouraged continued work with PT/OT. AIDS with toxoplasmosis, MAC. -Continue Tivicay and Descovy. Patient's family to bring her medications to hospital so she can take her own meds. -Viral load 70 and RPR negative on 03/29/17. -Patient off dapsone for PCP as CD4>200 consistently x 3 months (CD4 on 12/21 = 239, CD4 on 03/29 = 293) -Continue active therapy for toxoplasmosis 6 more weeks including clindamycin 600mg Q6H, Leucovorin 25mg PO daily and Daraprim 75mg po daily. -Records from [facility] indicate dosing will change to maintenance therapy for toxoplasmosis on 05/10/17 - clindamycin 800mg Q8H, daraprim 50mg daily and leucovorin daily, presumed to be at 25mg. Case discussed with attending, Dr Almaraz Sepsis Assessment - Evaluation Sepsis screening result: No Definite Risk Hospital Course Summary Disclaimer: The visit summary below is not to be considered part of the above Progress Note. Hospital Course: 04/07/17 15:45 -Debility secondary to acute illness and right sided weakness. .Agree with the admission to IRU under the care of Dr. Eason. Consult hospitalist service for medical management. .Provide a safe and supportive environment and encourage participation in therapies. .Recent MRI was unremarkable as was CT head. .Will obtain admission work up including CBC and CMP to monitor blood counts , electrolytes and renal function. .Patient reports episodes of hypoglycemia. Will obtain BMGs and monitor closely. .SCDs for DVT prophylaxis. -AIDS with toxoplasmosis, MAC. .Patient follows with Dr. Era Barrientos in [place]. .Continue home medications Tivicay and Descovy. Patient's family to bring her medications to hospital so she can take her own meds. .Viral load 70 and RPR negative on 03/29/17. .Patient off dapsone for PCP as CD4>200 consistently x 3 months (CD4 on 12/21 = 239, CD4 on 03/29 = 293) .Continue active therapy for toxoplasmosis 6 more weeks including clindamycin 600mg Q6H, Leucovorin 25mg PO daily and Daraprim 75mg po daily. .Records from [facility] indicate dosing will change to maintenance therapy for toxoplasmosis on 05/10/17 - clindamycin 800mg Q8H, daraprim 50mg daily and leucovorin daily, presumed to be at 25mg. -History of seizures. .Monitor closely for seizure activity. Seizure precautions. .Ativan 0.5mg PRN seizures. .Prior EEG on 04/03/17 at [facility] showed no abnormalities or seizure activity. .Encourage follow up with Dr. Cameron as outpatient . .Continue Keppra 1500mg BID. -Neuropathy. .Continue home gabapentin. -Hypothyroidism. .Will check TSH now and continue home synthyroid. -GERD. .Continue home protonix. Appreciate the ability to assist in the care of Yesenia. Upon discharge, her care will be returned to her PCP, Dr. Barrientos. 04/10/17 12:17 Reproducible chest pain, back pain. Also with episodic dizziness, diaphoresis, and nausea with activity -EKG shows sinus rhythm, will repeat one now -Obtain chest x-ray -Reassess CBC and CMP -Continue to monitor blood pressure and orthostatic vital signs -Strong suspicion this is muscular in nature with reproducibility -Recommend supportive cares, pain control, continue therapy -Flexeril was discontinued per attending because of increased weakness this morning, which has since improved Right-sided weakness -Per attending Iron deficiency anemia -Continue iron supplement 1530: repeat EKG is nearly identical to the one done on 04/07 - T wave flattening/ inversion in lead III; underlying rhythm sinus without ectopy or ST elevation/ depression; good R wave progression; normal axis Labs: CMP unremarkable; persistent leukopenia and anemia as before CXR: personally reviewed; no infiltrates, failure, or obvious abnormality 04/12/17 10:33 Back/Chest/Neck pain -discussed with Dr. Eason - he will resume Flexeril at a lower dose; monitor closely for mental status changes/lethargy -continue PT/OT AIDS with toxoplasmosis, MAC. -Continue Tivicay and Descovy. Patient's family to bring her medications to hospital so she can take her own meds. -Viral load 70 and RPR negative on 03/29/17. -Patient off dapsone for PCP as CD4>200 consistently x 3 months (CD4 on 12/21 = 239, CD4 on 03/29 = 293) -Continue active therapy for toxoplasmosis 6 more weeks including clindamycin 600mg Q6H, Leucovorin 25mg PO daily and Daraprim 75mg po daily. -Records from [facility] indicate dosing will change to maintenance therapy for toxoplasmosis on 05/10/17 - clindamycin 800mg Q8H, daraprim 50mg daily and leucovorin daily, presumed to be at 25mg. Leukopenia with predominance of lymphocytes -recheck CBC in am Rt sided weakness 04/16/17 Seizure like activity- witnessed event is somewhat atypical for seizure-like activity. However, given patient's history of reported seizures. Will obtain a prolactin and Keppra level. Ativan IM ordered Back/Chest/Neck pain -Continue with Tylenol, flexaril. Oxycodone available as needed for more severe pain - Continue to encourage work with physical therapy Rt sided weakness -appears to be intermittent. Encouraged continued work with PT/OT. AIDS with toxoplasmosis, MAC. -Continue Tivicay and Descovy. Patient's family to bring her medications to hospital so she can take her own meds. -Viral load 70 and RPR negative on 03/29/17. -Patient off dapsone for PCP as CD4>200 consistently x 3 months (CD4 on 12/21 = 239, CD4 on 03/29 = 293) -Continue active therapy for toxoplasmosis 6 more weeks including clindamycin 600mg Q6H, Leucovorin 25mg PO daily and Daraprim 75mg po daily. -Records from [facility] indicate dosing will change to maintenance therapy for toxoplasmosis on 05/10/17 - clindamycin 800mg Q8H, daraprim 50mg daily and leucovorin daily, presumed to be at 25mg. Case discussed with attending, Dr Almaraz
[2017-04-16] MEDS: CYCLOBENZAPRINE 5 MG TABLET PO PRN (21:29)
[2017-04-17] MEDS: CLINDAMYCIN 300 MG CAPSULE PO SCH ×4 (02:03→20:34)
[2017-04-17] MEDS: ALBUTEROL 2.5mg/3ml (0.083%) NEB AEROSOL SCH ×2 (07:21→19:54)
[2017-04-17] MEDS: ONDANSETRON ODT 4 MG TABLET PO SCH ×3 (07:40→20:38)
[2017-04-17] MEDS: LEVOTHYROXINE 75 MCG TABLET PO SCH (07:40)
[2017-04-17] MEDS: PANTOPRAZOLE 40 MG TABLET PO SCH ×2 (07:40→17:59)
[2017-04-17] MEDS: FERROUS GLUCONATE 324 MG TABLET PO SCH (08:22)
[2017-04-17] MEDS: DAPSONE 100 MG TABLET PO SCH (08:22)
[2017-04-17] MEDS: DOLUTEGRAVIR SODIUM 50 MG PO SCH (08:23)
[2017-04-17] MEDS: EMTRICITABINE PO SCH (08:24)
[2017-04-17] MEDS: [UNRECOGNIZED DRUG - OTHER] PO SCH (08:24)
[2017-04-17] MEDS: TENOFOVIR ALAFENAMIDE PO SCH (08:24)
[2017-04-17] MEDS: LEVETIRACETAM 500 MG TABLET PO SCH ×2 (08:24→20:35)
[2017-04-17] MEDS: ENOXAPARIN 40 MG/0.4 ML INJECTION SQ SCH (08:25)
[2017-04-17] MEDS: LEUCOVORIN 25 MG PO SCH (08:25)
[2017-04-17] MEDS: GABAPENTIN 600 MG TABLET PO SCH ×3 (08:25→20:35)
[2017-04-17] MEDS: [UNRECOGNIZED DRUG - OTHER] PO SCH (08:26)
[2017-04-17] MEDS: SENNA + DOCUSATE TABLET PO SCH ×2 (08:27→20:35)
[2017-04-17] MEDS: MULTI-VITAMIN + IRON TABLET PO SCH (08:27)
[2017-04-17] MEDS ORDERED: LORazepam 0.5 MG TABLET PO PRN (11:38)
[2017-04-17] MEDS: MONTELUKAST 10 MG TABLET PO SCH (21:57)
[2017-04-18] MEDS: CLINDAMYCIN 300 MG CAPSULE PO SCH ×3 (02:47→15:32)
[2017-04-18] MEDS: PANTOPRAZOLE 40 MG TABLET PO SCH ×2 (06:44→17:18)
[2017-04-18] MEDS: ONDANSETRON ODT 4 MG TABLET PO SCH ×2 (06:44→13:44)
[2017-04-18] MEDS: LEVOTHYROXINE 75 MCG TABLET PO SCH (06:44)
[2017-04-18] MEDS: ALBUTEROL 2.5mg/3ml (0.083%) NEB AEROSOL SCH (06:48)
[2017-04-18 07:57] VITALS: RESP 16
[2017-04-18] MEDS: ENOXAPARIN 40 MG/0.4 ML INJECTION SQ SCH (08:34)
[2017-04-18] MEDS: MULTI-VITAMIN + IRON TABLET PO SCH (08:46)
[2017-04-18] MEDS: GABAPENTIN 600 MG TABLET PO SCH ×2 (08:46→15:32)
[2017-04-18] MEDS: SENNA + DOCUSATE TABLET PO SCH (08:46)
[2017-04-18] MEDS: FERROUS GLUCONATE 324 MG TABLET PO SCH (08:46)
[2017-04-18] MEDS: DAPSONE 100 MG TABLET PO SCH (08:46)
[2017-04-18] MEDS: ERGOCALCIFEROL 50,000 UNIT CAPSULE PO SCH (08:46)
[2017-04-18] MEDS: LEVETIRACETAM 500 MG TABLET PO SCH (08:46)
[2017-04-18] MEDS: DOLUTEGRAVIR SODIUM 50 MG PO SCH (08:50)
[2017-04-18] MEDS: TENOFOVIR ALAFENAMIDE PO SCH (08:51)
[2017-04-18] MEDS: EMTRICITABINE PO SCH (08:51)
[2017-04-18] MEDS: [UNRECOGNIZED DRUG - OTHER] PO SCH (08:51)
[2017-04-18] MEDS: LEUCOVORIN 25 MG PO SCH (08:52)
[2017-04-18] MEDS: [UNRECOGNIZED DRUG - OTHER] PO SCH (08:53)
--- NOTE | 2017-04-18 13:29 | Progress Note ---
Subjective: Yesenia is doing much better from a therapy standpoint. The [employer] at bedside said that she has much more stable today and her right leg weakness is not as severe. I watched her ambulate, and with her walker she is steady. However, she continues to have diffuse body pain. She continues to have left scapular pain, right neck and back pain. Most concerning, however, is a new sensation to her right lower back that feels like her hip is dislocating in her muscles are being pulled out laterally. Every time she bears weight on her right leg. She requests an MRI to look at her back and hip. She is worried about the new sensation. She denies new radicular symptoms, mostly complains of a heavy sensation down her right leg. Objective Vital signs: Temperature 98.5 F 04/18/17 07:57 Pulse Rate 80 04/18/17 07:57 Respiratory Rate 16 04/18/17 07:57 Blood Pressure 124/71 04/18/17 07:57 Pulse Oximetry 92 04/18/17 07:57 Oxygen Delivery Method Room Air Weight: 107.2 kg - Constitutional Present: no acute distress, well nourished, well developed, obese - Routine HEENT Exam ENT: Present: mucous membranes moist, oropharynx clear - Routine Respiratory Exam Present: CTA bilaterally - Routine Cardiovascular Exam Present: RRR, S1, S2 - Routine Abdominal Exam Present: soft, non distended, non tender - Routine Extremities Exam Present: no edema, pulses intact - Routine Back/Spine/Pelvis Exam Back/Spine: Present: paraspinal tenderness (right lower thoracic and lumbar) - Routine Musculoskeletal Exam Musculoskeletal: Present: moving extremities well - Routine Skin Exam Present: intact, dry, warm - Routine Neurological Exam Present: alert, oriented X3, motor deficit (right leg weakness is improving) - Routine Psychiatric Exam Present: normal affect, normal thought process Results - Labs CBC & Chem 7: 04/13/17 04:46 04/13/17 04:46 Assessment and Plan (1) AIDS (acquired immunodeficiency syndrome), CD4 >200 and <500 Current visit: Yes Status: Chronic (2) Neuropathy Current visit: Yes Status: Chronic (3) Weakness of right side of body Current visit: Yes Status: Acute (4) Debility Current visit: Yes Status: Acute Assessment and Plan: Right leg weakness continues to improving gait is steady with her walker. At this time would not recommend obtaining new imaging studies such as a lumbar or thoracic spine MRI. She had both lumbar and thoracic spine MRIs done on 03/08, which showed a focal disc protrusion at T12 and L1, minimal multilevel degenerative changes of the lumbar cord, without any signs of spinal canal or neuroforaminal narrowing. Recommended follow-up with Dr. Weinberg. Plan is to discharge home today. Continue with home medications for AIDS with toxoplasmosis, MAC. Follow-up with Dr. Era Barrientos. Continue Keppra for seizure-like activity. Continue Lovenox x 30 days She will be discharged home with the right on track program Sepsis Assessment - Evaluation Sepsis screening result: No Definite Risk Hospital Course Summary Disclaimer: The visit summary below is not to be considered part of the above Progress Note. Hospital Course: 04/07/17 15:45 -Debility secondary to acute illness and right sided weakness. .Agree with the admission to IRU under the care of Dr. Eason. Consult hospitalist service for medical management. .Provide a safe and supportive environment and encourage participation in therapies. .Recent MRI was unremarkable as was CT head. .Will obtain admission work up including CBC and CMP to monitor blood counts , electrolytes and renal function. .Patient reports episodes of hypoglycemia. Will obtain BMGs and monitor closely. .SCDs for DVT prophylaxis. -AIDS with toxoplasmosis, MAC. .Patient follows with Dr. Era Barrientos in [place]. .Continue home medications Tivicay and Descovy. Patient's family to bring her medications to hospital so she can take her own meds. .Viral load 70 and RPR negative on 03/29/17. .Patient off dapsone for PCP as CD4>200 consistently x 3 months (CD4 on 12/21 = 239, CD4 on 03/29 = 293) .Continue active therapy for toxoplasmosis 6 more weeks including clindamycin 600mg Q6H, Leucovorin 25mg PO daily and Daraprim 75mg po daily. .Records from [facility] indicate dosing will change to maintenance therapy for toxoplasmosis on 05/10/17 - clindamycin 800mg Q8H, daraprim 50mg daily and leucovorin daily, presumed to be at 25mg. -History of seizures. .Monitor closely for seizure activity. Seizure precautions. .Ativan 0.5mg PRN seizures. .Prior EEG on 04/03/[address] [facility] showed no abnormalities or seizure activity. .Encourage follow up with Dr. Cameron as outpatient . .Continue Keppra 1500mg BID. -Neuropathy. .Continue home gabapentin. -Hypothyroidism. .Will check TSH now and continue home synthyroid. -GERD. .Continue home protonix. Appreciate the ability to assist in the care of Yesenia. Upon discharge, her care will be returned to her PCP, Dr. Barrientos. 04/10/17 12:17 Reproducible chest pain, back pain. Also with episodic dizziness, diaphoresis, and nausea with activity -EKG shows sinus rhythm, will repeat one now -Obtain chest x-ray -Reassess CBC and CMP -Continue to monitor blood pressure and orthostatic vital signs -Strong suspicion this is muscular in nature with reproducibility -Recommend supportive cares, pain control, continue therapy -Flexeril was discontinued per attending because of increased weakness this morning, which has since improved Right-sided weakness -Per attending Iron deficiency anemia -Continue iron supplement 1530: repeat EKG is nearly identical to the one done on 04/07 - T wave flattening/ inversion in lead III; underlying rhythm sinus without ectopy or ST elevation/ depression; good R wave progression; normal axis Labs: CMP unremarkable; persistent leukopenia and anemia as before CXR: personally reviewed; no infiltrates, failure, or obvious abnormality 04/12/17 10:33 Back/Chest/Neck pain -discussed with Dr. Eason - he will resume Flexeril at a lower dose; monitor closely for mental status changes/lethargy -continue PT/OT AIDS with toxoplasmosis, MAC. -Continue Tivicay and Descovy. Patient's family to bring her medications to hospital so she can take her own meds. -Viral load 70 and RPR negative on 03/29/17. -Patient off dapsone for PCP as CD4>200 consistently x 3 months (CD4 on 12/21 = 239, CD4 on 03/29 = 293) -Continue active therapy for toxoplasmosis 6 more weeks including clindamycin 600mg Q6H, Leucovorin 25mg PO daily and Daraprim 75mg po daily. -Records from [facility] indicate dosing will change to maintenance therapy for toxoplasmosis on 05/10/17 - clindamycin 800mg Q8H, daraprim 50mg daily and leucovorin daily, presumed to be at 25mg. Leukopenia with predominance of lymphocytes -recheck CBC in am Rt sided weakness 04/16/17 Seizure like activity- witnessed event is somewhat atypical for seizure-like activity. However, given patient's history of reported seizures. Will obtain a prolactin and Keppra level. Ativan IM ordered Back/Chest/Neck pain -Continue with Tylenol, flexaril. Oxycodone available as needed for more severe pain - Continue to encourage work with physical therapy Rt sided weakness -appears to be intermittent. Encouraged continued work with PT/OT. AIDS with toxoplasmosis, MAC. -Continue Tivicay and Descovy. Patient's family to bring her medications to hospital so she can take her own meds. -Viral load 70 and RPR negative on 03/29/17. -Patient off dapsone for PCP as CD4>200 consistently x 3 months (CD4 on 12/21 = 239, CD4 on 03/29 = 293) -Continue active therapy for toxoplasmosis 6 more weeks including clindamycin 600mg Q6H, Leucovorin 25mg PO daily and Daraprim 75mg po daily. -Records from [facility] indicate dosing will change to maintenance therapy for toxoplasmosis on 05/10/17 - clindamycin 800mg Q8H, daraprim 50mg daily and leucovorin daily, presumed to be at 25mg. Case discussed with attending, Dr Almaraz
--- NOTE | 2017-04-18 13:33 | Discharge Instructions ---
Discharge Plan - Med Rec/Dispo Referrals/Follow Up: Era Barrientos MD [Other] (Dr. Lilia Barrientos on 04/25/17 at 1:00 pm for Hosp. follow-up. . Internal [facility] [place] [address] [place] [address]) Additional Instructions: Tonia Duggan will call on 04/19/17 and visit you at your house on 05/01/17 at 9 am. Please call and ask to be transferred to the Case Management Department if you have to reschedule. Prescriptions: New Enoxaparin Sodium [Lovenox] 40 mg SQ DAILY #30 syringe Multi-Vitamin + Iron [Theragran - H] 1 tab PO DAILY tablet Continue Pantoprazole Tab [Protonix Tab] 1 tab PO ACBID Gabapentin [Neurontin] 1 tab PO TID Pyrimethamine [Daraprim] 3 tab PO DAILY Ondansetron [Zofran Odt] 8 mg PO Q8H Levothyroxine Tab [Synthroid] 1 tab PO ACB Leucovorin Calcium 25 mg PO DAILY hydrOXYzine HCl [Hydroxyzine HCl] 25 mg PO Q6H PRN PRN Reason: prn Cyclobenzaprine [Flexeril] 1 tab PO TID PRN PRN Reason: Muscle Spasm Clindamycin [Cleocin] 2 cap PO Q6H Dolutegravir Sodium [Tivicay] 50 mg PO DAILY Oxycodone *Ir* [Roxicodone *Ir*] 5 mg PO Q6HPRN PRN #30 tablet PRN Reason: Pain Dapsone [Aczone] 100 mg PO DAILY #0 levETIRAcetam [Levetiracetam] 1,500 mg PO BID Ergocalciferol (Vit. D2) [Vitamin D-2] 1 cap PO QTUTH Montelukast [Singulair] 1 tab PO HS Emtricitabine/Tenofov Alafenam [Descovy 200-25 mg Tablet] 1 tab PO DAILY Discontinued Albuterol Neb (0.083%) [Proventil Neb (0.083%)] 3 ml AEROSOL TID - Disposition 01 Discharged Home, Self-Care
--- NOTE | 2017-04-18 14:48 | IRU Progress Note ---
- Subjective/Serverity of Illness Patient had significant difficulty yesterday due to "seizure-like" activity. Ativan was ordered as a when necessary to be given prior to therapy and she did not have any issues today. She has been able to meet significant milestones today. Exam Vital Signs: Temperature 98.5 F 04/18/17 07:57 Pulse Rate 80 04/18/17 07:57 Respiratory Rate 16 04/18/17 07:57 Blood Pressure 124/71 04/18/17 07:57 Pulse Oximetry 92 04/18/17 07:57 Oxygen Delivery Method Room Air Telemetry Rhythm: Sinus Rhythm Height: 1.57 m Weight: 107.2 kg Body Mass Index: 41.4 - Constitutional Present: no acute distress - Routine HEENT Exam Head: Present: normocephalic - Routine Chest/Breast/Axilla Exam Chest wall: Absent: tenderness - Routine Respiratory Exam Present: CTA bilaterally. Absent: accessory muscle use, dyspnea - Routine Cardiovascular Exam Present: RRR, no murmur Sepsis Assessment - Evaluation Sepsis screening result: No Definite Risk IRU A/P (1) AIDS (acquired immunodeficiency syndrome), CD4 >200 and <500 Current visit: Yes Status: Chronic Followed by medical (2) Neuropathy Current visit: Yes Status: Chronic Medical working with patient. Also expect improvement with increase strength with physical therapy and occupational therapy. (3) Weakness of right side of body Current visit: Yes Status: Acute Physical therapy and occupational therapy working to increase stability and strength. (4) Debility Current visit: Yes Status: Acute See above, patient has made significant improvement today. She may discharge later today if she is able to set up care at home. She is looking into this at this time. DVT Prophylaxis: SCD's, Lovenox Resuscitation Status: Full Code - Course Hospital Course: Jackson Eason MD: - Interventions to Obtain Goals PT Treatment Plan: Balance/Proprioception, Functional Activities, Gait Training , Patient/Family Education, Therapeutic Exercise OT Treatment Plan: ADL (Basic Care), Balance Training, Pt./Family Education, Sensory Integration, UE Functional Training
--- NOTE | 2017-04-18 15:26 | Discharge Summary ---
Discharge Information Date of admission: 04/07/17 10:54 Anticipated date of discharge: 04/18/17 Attending Physician: Freedom Lo MD Consults: 04/07/17 13:27 Physician Consult [CONS] Routine Consulting Provider: Joel Almaraz Reason For Exam: Medical Management Ordering Provider has Notified Fret Saw Operator: No Comment: Not emergency - Discharge Diagnosis (1) AIDS (acquired immunodeficiency syndrome), CD4 >200 and <500 Status: Chronic (2) Neuropathy Status: Chronic (3) Weakness of right side of body Status: Acute (4) Debility Status: Acute - Laboratory Labs: 04/13/17 04:46 04/13/17 04:46 History of Present Illness HPI: 04/18/17 15:27 Ms. Arpita Jacob is admitted with right sided weakness after a spell which occurred in [place] at [facility]. On March, she was visiting her daughter and grandchild at the hospital she reportedly felt reduced sensation in her right arm and leg. She became very thirsty. She drank some water. She had a "pulsing" feeling in her left side of her head. She also reports a right ant chest pain sensation. She then experienced loss of consciousness. She was taken to [facility], also in [place]. After a neg CT scan, an MRI was done, failing to identify any new findings compared to prior imaging. 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 Era Barrientos. Last CD4 count was over 200. Viral load around 70. She has hx of a mass resected from her left parietal area in June 2016. Presumably this was toxo although exact pathology is not available and reference is made in the transfer records that it may have been a non-specific finding. She does have history of recurrent seizures but states that she is regular on her medication usage. It is not clear if she had another seizure this time in [place] although she states that her usual "aura" of itchy eyes, etc. did NOT occur this time. She has been admitted to the hospitals in [place] on numerous occasions for recurrent seizures. Since this more recent episode, she has been much less functional regarding ADL's and ambulation. She did experience "posturing" in the ED in [place]. Intubation was performed but she was rapidly extubated the next day. She is admitted to the inpatient rehab unit for strengthening after recurrent seizures and a new "spell" recently occurring. She has left brain dysfunction and right sided weakness. There was no evidence of bleed in the brain on MRI. At the time of admission to IRU it is noted that she was independent with eating prior to her admission in [place] but now requires supervision. She now requires mod assist for lower dressing and toileting. Requires moderate assist for walking. Prior distance walking was 500 ft but now is 42 ft. It is anticipated that she will be mod independent with self-care, independent with sphincter control, mod Indep with transfers, locomotion and in communication skills. She will require 24 hour nursing care due to her seizures and risk for infection , nutrition services, OT, PT pastoral care and social media content specialist along with physician management of her complex medical problems. Hospital Course This is a general summary of the patient's hospital course. For more details refer to the complete medical record. Patient was admitted for physical therapy and occupational therapy treatment of stability and myopathy along with medical supervision due to HIV/AIDS and seizure disorder. Patient had recurrent "seizures" especially with stress. She can anticipate that they were coming on and we ultimately placed her on when necessary Ativan. This stopped the seizures as she could take him prior to physical therapy and other stressful experiences. She has made significant FIM score improvements. At this point, she can manage her ADLs. She has a 12-year- old daughter who is very supportive and facilitates much of her activity. The plan is that the daughter will go to school full-time, but be home in the evening and at night to help. Neighbor's are going to help during the day. Home health will be consulted. Patient will follow up with her primary care provider. She is being discharged with Lovenox due to the history of toxoplasmosis and neurologic issues. For the next month, and then will be managed by her provider. Hospital course: 04/07/17 15:45 -Debility secondary to acute illness and right sided weakness. .Agree with the admission to IRU under the care of Dr. Eason. Consult hospitalist service for medical management. .Provide a safe and supportive environment and encourage participation in therapies. .Recent MRI was unremarkable as was CT head. .Will obtain admission work up including CBC and CMP to monitor blood counts , electrolytes and renal function. .Patient reports episodes of hypoglycemia. Will obtain BMGs and monitor closely. .SCDs for DVT prophylaxis. -AIDS with toxoplasmosis, MAC. .Patient follows with Dr. Era Barrientos in [place]. .Continue home medications Tivicay and Descovy. Patient's family to bring her medications to hospital so she can take her own meds. .Viral load 70 and RPR negative on 03/29/17. .Patient off dapsone for PCP as CD4>200 consistently x 3 months (CD4 on 12/21 = 239, CD4 on 03/29 = 293) .Continue active therapy for toxoplasmosis 6 more weeks including clindamycin 600mg Q6H, Leucovorin 25mg PO daily and Daraprim 75mg po daily. .Records from [facility] indicate dosing will change to maintenance therapy for toxoplasmosis on 05/10/17 - clindamycin 800mg Q8H, daraprim 50mg daily and leucovorin daily, presumed to be at 25mg. -History of seizures. .Monitor closely for seizure activity. Seizure precautions. .Ativan 0.5mg PRN seizures. .[place] [facility] [place] abnormalities or seizure activity. .Encourage follow up with Dr. Cameron as outpatient . .Continue Keppra 1500mg BID. -Neuropathy. .Continue home gabapentin. -Hypothyroidism. .Will check TSH now and continue home synthyroid. -GERD. .Continue home protonix. Appreciate the ability to assist in the care of Yesenia. Upon discharge, her care will be returned to her PCP, Dr. Barrientos. 04/10/17 12:17 Reproducible chest pain, back pain. Also with episodic dizziness, diaphoresis, and nausea with activity -EKG shows sinus rhythm, will repeat one now -Obtain chest x-ray -Reassess CBC and CMP -Continue to monitor blood pressure and orthostatic vital signs -Strong suspicion this is muscular in nature with reproducibility -Recommend supportive cares, pain control, continue therapy -Flexeril was discontinued per attending because of increased weakness this morning, which has since improved Right-sided weakness -Per attending Iron deficiency anemia -Continue iron supplement 1530: repeat EKG is nearly identical to the one done on 04/07 - T wave flattening/ inversion in lead III; underlying rhythm sinus without ectopy or ST elevation/ depression; good R wave progression; normal axis Labs: CMP unremarkable; persistent leukopenia and anemia as before CXR: personally reviewed; no infiltrates, failure, or obvious abnormality 04/12/17 10:33 Back/Chest/Neck pain -discussed with Dr. Eason - he will resume Flexeril at a lower dose; monitor closely for mental status changes/lethargy -continue PT/OT AIDS with toxoplasmosis, MAC. -Continue Tivicay and Descovy. Patient's family to bring her medications to hospital so she can take her own meds. -Viral load 70 and RPR negative on 03/29/17. -Patient off dapsone for PCP as CD4>200 consistently x 3 months (CD4 on 12/21 = 239, CD4 on 03/29 = 293) -Continue active therapy for toxoplasmosis 6 more weeks including clindamycin 600mg Q6H, Leucovorin 25mg PO daily and Daraprim 75mg po daily. -Records from [facility] indicate dosing will change to maintenance therapy for toxoplasmosis on 05/10/17 - clindamycin 800mg Q8H, daraprim 50mg daily and leucovorin daily, presumed to be at 25mg. Leukopenia with predominance of lymphocytes -recheck CBC in am Rt sided weakness 04/16/17 Seizure like activity- witnessed event is somewhat atypical for seizure-like activity. However, given patient's history of reported seizures. Will obtain a prolactin and Keppra level. Ativan IM ordered Back/Chest/Neck pain -Continue with Tylenol, flexaril. Oxycodone available as needed for more severe pain - Continue to encourage work with physical therapy Rt sided weakness -appears to be intermittent. Encouraged continued work with PT/OT. AIDS with toxoplasmosis, MAC. -Continue Tivicay and Descovy. Patient's family to bring her medications to hospital so she can take her own meds. -Viral load 70 and RPR negative on 03/29/17. -Patient off dapsone for PCP as CD4>200 consistently x 3 months (CD4 on 12/21 = 239, CD4 on 03/29 = 293) -Continue active therapy for toxoplasmosis 6 more weeks including clindamycin 600mg Q6H, Leucovorin 25mg PO daily and Daraprim 75mg po daily. -Records from [facility] indicate dosing will change to maintenance therapy for toxoplasmosis on 05/10/17 - clindamycin 800mg Q8H, daraprim 50mg daily and leucovorin daily, presumed to be at 25mg. Case discussed with attending, Dr Almaraz Time spent with patient: 25 - 35 minutes DVT Prophylaxis: Lovenox GI Prophylaxis: Rantidine Discharge Plan - Med Rec/Dispo Referrals/Follow Up: Era Barrientos MD [Other] (Dr. Lilia Barrientos on 04/25/17 at 1:00 pm for Hosp. follow-up. . Internal Medicine [place] [id number]) Additional Instructions: Tonia Duggan will call on 04/19/17 and visit you at your house on 05/01/17 at 9 am. Please call and ask to be transferred to the Case Management Department if you have to reschedule. Prescriptions: New Enoxaparin Sodium [Lovenox] 40 mg SQ DAILY #30 syringe Multi-Vitamin + Iron [Theragran - H] 1 tab PO DAILY tablet Continue Pantoprazole Tab [Protonix Tab] 1 tab PO ACBID Gabapentin [Neurontin] 1 tab PO TID Pyrimethamine [Daraprim] 3 tab PO DAILY Ondansetron [Zofran Odt] 8 mg PO Q8H Levothyroxine Tab [Synthroid] 1 tab PO ACB Leucovorin Calcium 25 mg PO DAILY hydrOXYzine HCl [Hydroxyzine HCl] 25 mg PO Q6H PRN PRN Reason: prn Cyclobenzaprine [Flexeril] 1 tab PO TID PRN PRN Reason: Muscle Spasm Clindamycin [Cleocin] 2 cap PO Q6H Dolutegravir Sodium [Tivicay] 50 mg PO DAILY Oxycodone *Ir* [Roxicodone *Ir*] 5 mg PO Q6HPRN PRN #30 tablet PRN Reason: Pain Dapsone [Aczone] 100 mg PO DAILY #0 levETIRAcetam [Levetiracetam] 1,500 mg PO BID Ergocalciferol (Vit. D2) [Vitamin D-2] 1 cap PO QTUTH Montelukast [Singulair] 1 tab PO HS Emtricitabine/Tenofov Alafenam [Descovy 200-25 mg Tablet] 1 tab PO DAILY Discontinued Albuterol Neb (0.083%) [Proventil Neb (0.083%)] 3 ml AEROSOL TID - Disposition 01 Discharged Home, Self-Care - Attestation Attestation Narrative: 04/18/17 15:30 I provided the patient prior to discharge and she is stable
[2017-04-18 15:50] VITALS: BP 114/65; PULSE 79; TEMP 97.8; O2SAT 97
--- NOTE | 2017-04-19 11:09 | Right on Track Program ---
Right on Track Program Date of Discharge: 04/18/17 Home Medications: Home Medications Medication Instructions Recorded Confirmed Dapsone [Aczone] 100 mg PO DAILY #0 09/17/15 04/07/17 Clindamycin [Cleocin] 2 cap PO Q6H 04/07/17 04/07/17 Cyclobenzaprine [Flexeril] 1 tab PO TID PRN 04/07/17 04/07/17 Dolutegravir Sodium [Tivicay] 50 mg PO DAILY 04/07/17 04/07/17 Emtricitabine/Tenofov Alafenam 1 tab PO DAILY 04/07/17 04/07/17 [Descovy 200-25 mg Tablet] Ergocalciferol (Vit. D2) [Vitamin 1 cap PO QTUTH 04/07/17 04/07/17 D-2] Gabapentin [Neurontin] 1 tab PO TID 04/07/17 04/07/17 Leucovorin Calcium 25 mg PO DAILY 04/07/17 04/07/17 Levothyroxine Tab [Synthroid] 1 tab PO ACB 04/07/17 04/07/17 Montelukast [Singulair] 1 tab PO HS 04/07/17 04/07/17 Ondansetron [Zofran Odt] 8 mg PO Q8H 04/07/17 04/07/17 Pantoprazole Tab [Protonix Tab] 1 tab PO ACBID 04/07/17 04/07/17 Pyrimethamine [Daraprim] 3 tab PO DAILY 04/07/17 04/07/17 hydrOXYzine HCl [Hydroxyzine HCl] 25 mg PO Q6H PRN 04/07/17 04/07/17 levETIRAcetam [Levetiracetam] 1,500 mg PO BID 04/07/17 04/07/17 Previous Rx's Medication Instructions Recorded Enoxaparin Sodium [Lovenox] 40 mg SQ DAILY #30 syringe 04/18/17 Multi-Vitamin + Iron [Theragran - 1 tab PO DAILY tablet 04/18/17 H] Oxycodone *Ir* [Roxicodone *Ir*] 5 mg PO Q6HPRN PRN #30 tablet 04/18/17 - Right on Track Program PHONE CALL 04/19/17 Date: 04/19/17 Right on Track Program: 24 Hour Follow-Up Discharge Summary Received: Yes Care Plan Received: Yes Follow Up: Follow Up Appointment Scheduled (DR. CARIAS 04/25/17 @ 1PM) Education: Education Provided To Caregiver Referral: Social Work, Primary Care Physician, Home Health Comments: I spoke to Lili on 04/19/17. Overall, she's about the same - still having quite a bit of pain to her back and neck. She has Flexeril at home, and had Rx oxycodone for pain. I also let her know that she may purchase OTC Jaylen López or equivalent for her muscular discomfort. She has done the exercises prescribed without any improvement, and now is feeling worse. I gave her permission to take it easy today, and restart her exercises tomorrow. She however reports that the home health nurse was out today and said her blood pressure was a little low and she has been feeling dizzy and weak - I cautioned her about taking Flexeril and Oxycodone d/t side effects. She checked her blood pressure while I was on the phone with her, and it was 113/87, but she was still feeling slightly dizzy. We talked about what to do if she was dizzy at home. I recommended to drink water and rest for a few minutes, and then slowly get up. If her blood pressure continues to run low, she should contact her home health nurse. I also encouraged her to drink plenty of water and stay hydrated, and eat a healthy diet. She asked for clarification on Lovenox, and I explained it is to help prevent a blood clot. She gave her first injection this morning and thought it went well. She didn't have any other questions about her home medications. There was a problem with the discharge instructions. They were unable to print in Khmer last night, and I spoke to the nurse, who said they will be mailing out the Khmer instructions as soon as possible. Discussed With Patient and Caregiver: Yes Recommendations For Follow-up: 1. Provide ongoing reassurance, teach self-management strategies including appropriate blood pressure monitoring, fall/dizziness prevention and management , nonpharmacologic treatment of musculoskeletal discomfort 2. Follow-up with Dr. Era Carias as planned on 04/25/17. May want to explore ongoing need for Lovenox, especially she is up and ambulatory. 3. I will contact home health to follow-up on blood pressure concerns. 4. Home visit is planned for May 01 at 9 AM. - Problems (1) AIDS (acquired immunodeficiency syndrome), CD4 >200 and <500 Code(s): B20 - Human immunodeficiency virus [HIV] disease Status: Chronic (2) Neuropathy Code(s): G62.9 - Polyneuropathy, unspecified Status: Chronic (3) Weakness of right side of body Code(s): R53.1 - Weakness Status: Acute (4) Debility Code(s): R53.81 - Other malaise Status: Acute
--- NOTE | 2017-05-01 10:51 | Right on Track Program ---
Right on Track Program Date of Discharge: 04/18/17 Home Medications: Home Medications Medication Instructions Recorded Confirmed Dapsone [Aczone] 100 mg PO DAILY #0 09/17/15 04/07/17 Clindamycin [Cleocin] 2 cap PO Q6H 04/07/17 04/07/17 Cyclobenzaprine [Flexeril] 1 tab PO TID PRN 04/07/17 04/07/17 Dolutegravir Sodium [Tivicay] 50 mg PO DAILY 04/07/17 04/07/17 Emtricitabine/Tenofov Alafenam 1 tab PO DAILY 04/07/17 04/07/17 [Descovy 200-25 mg Tablet] Ergocalciferol (Vit. D2) [Vitamin 1 cap PO QTUTH 04/07/17 04/07/17 D-2] Gabapentin [Neurontin] 1 tab PO TID 04/07/17 04/07/17 Leucovorin Calcium 25 mg PO DAILY 04/07/17 04/07/17 Levothyroxine Tab [Synthroid] 1 tab PO ACB 04/07/17 04/07/17 Montelukast [Singulair] 1 tab PO HS 04/07/17 04/07/17 Ondansetron [Zofran Odt] 8 mg PO Q8H 04/07/17 04/07/17 Pantoprazole Tab [Protonix Tab] 1 tab PO ACBID 04/07/17 04/07/17 Pyrimethamine [Daraprim] 3 tab PO DAILY 04/07/17 04/07/17 hydrOXYzine HCl [Hydroxyzine HCl] 25 mg PO Q6H PRN 04/07/17 04/07/17 levETIRAcetam [Levetiracetam] 1,500 mg PO BID 04/07/17 04/07/17 Previous Rx's Medication Instructions Recorded Enoxaparin Sodium [Lovenox] 40 mg SQ DAILY #30 syringe 04/18/17 Multi-Vitamin + Iron [Theragran - 1 tab PO DAILY tablet 04/18/17 H] Oxycodone *Ir* [Roxicodone *Ir*] 5 mg PO Q6HPRN PRN #30 tablet 04/18/17 - Right on Track Program [id number] 05/01/17 Date: 05/01/17 Right on Track Program: 7-14 Day [id number] Discharge Summary Received: Yes Care Plan Received: Yes Follow Up: Follow Up Appointment Scheduled Education: Diagnosis Education Reviewed, Education Provided To Caregiver Referral: Social Work, Primary Care Physician, Occupational Therapy, Home Health Comments: I visited Yesenia at her home on 05/01/17. Her daughter, Amy, was also present. Yesenia complains of ongoing pain, right sided "looseness" and weakness, chest pain, and fatigue. She actually feels like overall, she's become weaker since returning home from [facility]. While yesterday she felt stronger and felt like she was making progress, she is extremely weak today. In fact, when she stood up out of her chair, she became very dizzy and diaphoretic and was unable to walk. She notes feeling hot and then cold. She has had some of her auras (tingling to left side of face) but has not had any seizures. Here are her concerns: -chest pain - occurs nearly every day. She has not identified triggers or a pattern. She describes chest heaviness, throat tightness, and SOA. It resolves after a few moments. She tries to use relaxation techniques ( deep breathing) but that reproduces pain in her left anterior chest. She called HH RN yesterday who recommended for her to go to the ED, but Yesenia was reluctant. After a few minutes, she was feeling better. -left shoulder pain - she had a recent MRI and is waiting on results -right leg pain and weakness - she has had increasing difficulty picking up her right leg in order to ambulate. -dizziness - she describes vertigo (house is rocking or the room spinning), and acknowledges right ear tinnitus (insect buzzing sounds). The tinnitus has actually been present since her surgery. Resources: Her daughter, Amy, interprets for her and helps her throughout the day. She has a walker, Home Health, PT/OT, and good follow up. She has a strong yazmin base and prays often. She is comfortable giving herself Lovenox injections. Barriers: [place] is her primary language; perhaps underlying depression/ anxiety. Depression: She tries to stay positive, but knows that she might have persistent right leg weakness and pain. She became tearful on a couple occasions. It's possible that her triad of chest pain, throat tightness, and shortness of breath is anxiety. Medications: She uses a pill organizer. Medications were reviewed and she seemed to understand the rationale for her medications. She denies any recent medication changes. Fall risk: High because of right leg weakness, vertigo, fatigue. Her duplex was clean with adequate walking space and no obvious tripping hazards. AIDS with toxoplasmosis and MAC: She has already followed up at Dr. Barrientos's office, which is where they arranged MRIs of left shoulder and right leg ( perhaps she meant lumbar spine but they were unable to clarify). She has not had recent labs drawn, but is due to have her counts repeated in 2-3 months. Notes indicated that she will change to maintenance therapy for toxoplasmosis on 05/10/17. Sleep hygiene: she sleeps well at night, goes to bed around 9-10 pm and awakens around 7 am. Nutrition: briefly addressed. She makes it a point to stay well hydrated with water (indeed she had 2 large packages of 50 water bottles in her living room). She reports eating plenty of fruits and vegetables. She and her daughter agree that she limits sugary foods. Brief exam: VS taken by OT who arrived during this visit: BP was 140/85 (taken after she began feeling dizzy); HR 73; RR 18; Sat 99% RA; T 97.7. Gen: Pleasant, NAD, communicates well Neuro: No obvious CN deficits; strength to right arm/leg is 3-/5 compared to left arm/leg 4+/5; very unsteady on feet, even with walker Lungs: CTAB CV: RRR Abd: soft, nontender; mild ecchymotic areas to abdomen from Lovenox injections Ext: no edema Discussed With Patient and Caregiver: Yes Recommendations For Follow-up: 1. May need further evaluation/treatment for anxiety/depression 2. May benefit from additional training in relaxation techniques 3. Ongoing workup for pain/weakness 4. Consider neurologic follow up regarding vertigo and right ear tinnitus (and right sided weakness) 5. Continue Home Health, PT/OT. May need to re-visit ability to live independently when her daughter returns to school in May. Her daughter does plan on attending school in [place] and living with her mother to continue to support her as needed (though, her daughter is only 12 years old, so further assistance may be needed). - Problems (1) AIDS (acquired immunodeficiency syndrome), CD4 >200 and <500 Code(s): B20 - Human immunodeficiency virus [HIV] disease Status: Chronic (2) Neuropathy Code(s): G62.9 - Polyneuropathy, unspecified Status: Chronic (3) Weakness of right side of body Code(s): R53.1 - Weakness Status: Acute
== END 2017-04-18 18:50 | disposition home health service (06) | DRG 56 ==
PROVIDERS: ADMIT Family Medicine; ATTEND Family Medicine